=== PATIENT | female | born 1945 | race Caucasian/White ===

== ENCOUNTER 2016-06-18 04:30 | Emergency (ER) | payer MEDICARE, OTHER ==
[2016-06-18] MEDS ORDERED: SODIUM CHLORIDE 0.9% (FLUSH) 10 ML SYG IV PRN (05:10)
--- NOTE | 2016-06-18 05:36 | ED.PDOC ---
History of Present Illness - General Chief Complaint: Respiratory Problem Stated Complaint: upper ab pain, rt side chest pain, SOB Time Seen by Provider: 06/18/16 05:08 Source: patient, RN notes reviewed, Vital Signs reviewed Exam Limitations: other - poor historian - History of Present Illness Initial Comments: This 70 y/o female with ESRD on dialysis was awakened by chest pain earlier this AM. She does not know what time or how long ago. The pain is an achey pain in the substernal area. Patient has shortness of breath (she can't tell me whether this is more than usual), and nausea. She has not vomited. She also has right flank pain which is sharp. She is supposed to go to dialysis this morning at 0630. Timing/Duration: unsure Severity: moderate Improving Factors: nothing Worsening Factors: nothing Associated Symptoms: chest pain, nausea/vomiting, shortness of breath, weakness Allergies/Adverse Reactions: Allergies Penicillins Allergy (Verified 04/08/16 18:53) Sulfa Antibiotics Allergy (Verified 04/08/16 18:53) Home Medications: Ambulatory Orders Cilostazol 50 mg PO BID 07/23/13 Diphenhydramine HCl [Benadryl] 25 mg PO PRN 07/23/13 Loperamide-Simethicone [Imodium Advanced 2-125 mg] 1 tab PO PRN 07/23/13 Sevelamer Carbonate [Renvela] 2,400 mg PO TID 07/23/13 Metoprolol Tartrate 100 mg PO BID 04/08/16 amLODIPine BESYLATE [Norvasc] 10 mg PO DAILY 04/08/16 Review of Systems - Review of Systems Constitutional: States: malaise, weakness EENTM: States: nose congestion Respiratory: States: short of breath Cardiology: States: chest pain Gastrointestinal/Abdominal: States: nausea Genitourinary: States: other - hesitancy Musculoskeletal: States: no symptoms reported Skin: States: no symptoms reported Neurological: States: numbness, paresthesia, pre-existing deficit Endocrine: States: intolerance to cold Hematologic/Lymphatic: States: no symptoms reported All other Systems: Reviewed and Negative Past Medical History (General) - Patient Medical History Hx Stroke: Yes - TIA's Hx Cardiac Disorders: Yes Hx Congestive Heart Failure: Yes Hx Hypertension: Yes Hx Diabetes: Yes Hx Gastroesophageal Reflux: Yes Hx Renal Disease: Yes - CRF; dialysis Hx MRSA: No Surgical History: appendectomy, cholecystectomy, tonsillectomy - Vaccination History Hx Tetanus, Diphtheria Vaccination: Yes Hx Influenza Vaccination: Yes Hx Pneumococcal Vaccination: Yes - Social History Hx Tobacco Use: No Hx Alcohol Use: No Hx Substance Use: No Hx Substance Use Treatment: No Hx Depression: No - Female History Patient : No Family Medical History - Family History Father Living Status: Hx Cardiac Disease: Yes Hx Family Diabetes: Yes Physical Exam - Physical Exam General Appearance: Alert, Comfortable Eye Exam: bilateral normal Ears, Nose, Throat: hearing grossly normal, normal ENT inspection Respiratory: lungs clear, normal breath sounds, no respiratory distress, no accessory muscle use Cardiovascular/Chest: regular rate, rhythm, no edema, no gallop, systolic murmur - III/ Gastrointestinal/Abdominal: normal bowel sounds, soft, no organomegaly, no pulsatile mass, tenderness - generalized abdominal tenderness Extremity: non-tender, normal inspection, no pedal edema, no calf tenderness Neurologic: alert, normal mood/affect, oriented x 3 Skin Exam: normal color, warm/dry Progress - Results/Orders Results/Orders: 06/18/16 06/18/16 06/18/16 04:49 05:17 05:30 Temperature 98.5 F Pulse Rate [ 81 70 73 Apical] Respiratory 18 20 18 Rate Blood Pressure 156/74 149/70 164/65 [Right Arm] O2 Sat by Pulse 93 L 94 L 94 L Oximetry 06/18/16 05:05 HEPATIC FUNCTION PANEL Stat 06/18/16 05:10 IV Care:Saline Lock per Protoc QSHIFT Telemetry .ONCE Sodium Chloride 0.9% (Flush) [Saline Flush Syringe] 10 ml IV PRN PRN EKG Stat Pulse Ox Stat 06/18/16 05:11 Pulse Oximetry Assessment DAILY Laboratory Results WBC 11.1 K/mm3 (4.8-10.8) H 06/18/16 05:05 RBC 3.46 M/mm3 (4.20-5.40) L 06/18/16 05:05 Hgb 10.6 gm/dL (12.0-16.0) L 06/18/16 05:05 Hct 32.4 % (36.0-47.0) L 06/18/16 05:05 MCV 93.6 fl (81.0-99.0) 06/18/16 05:05 MCH 30.6 pg (27.0-31.0) 06/18/16 05:05 MCHC 32.6 g/dL (33.0-37.0) L 06/18/16 05:05 RDW 18.4 % (11.5-14.5) H 06/18/16 05:05 Plt Count 97 K/mm3 (130-400) L 06/18/16 05:05 MPV 10.8 fl (7.40-10.4) H 06/18/16 05:05 Absolute Neuts (auto) 9.80 K/uL (1.8-6.8) H 06/18/16 05:05 Absolute Lymphs (auto) 0.50 K/uL (1.0-3.4) L 06/18/16 05:05 Absolute Monos (auto) 0.70 K/uL (0.2-0.8) 06/18/16 05:05 Absolute Eos (auto) 0.10 K/uL (0.0-0.4) 06/18/16 05:05 Absolute Basos (auto) 0.10 K/uL (0.0-0.1) 06/18/16 05:05 Neutrophils % 87.8 % (42.0-78.0) H 06/18/16 05:05 Lymphocytes % 4.8 % (20.0-50.0) L 06/18/16 05:05 Monocytes % 6.2 % (2.0-9.0) 06/18/16 05:05 Eosinophils % 0.5 % (1.0-5.0) L 06/18/16 05:05 Basophils % 0.7 % (0.0-2.0) 06/18/16 05:05 PT 12.4 SECONDS (9.4-12.5) 06/18/16 05:05 INR 1.100 06/18/16 05:05 PTT (SP) 29.6 SECONDS (25.1-36.5) 06/18/16 05:05 D-Dimer, Quantitative 231 ng/mL (0-230) H 06/18/16 05:05 Sodium 136 mmol/L (135-145) 06/18/16 05:05 Potassium 3.7 mmol/L (3.6-5.0) 06/18/16 05:05 Chloride 90 mmol/L (101-111) L 06/18/16 05:05 Carbon Dioxide 30 mmol/L (21-31) 06/18/16 05:05 Anion Gap 19.7 (12-18) H 06/18/16 05:05 BUN 57 mg/dL (7-18) H 06/18/16 05:05 Creatinine 9.01 mg/dL (0.6-1.3) H* 06/18/16 05:05 BUN/Creatinine Ratio 6.3 (10-20) L 06/18/16 05:05 Random Glucose 198 mg/dL (70-105) H 06/18/16 05:05 Serum Osmolality 293.3 mOsm/L (275-295) 06/18/16 05:05 Calcium 9.1 mg/dL (8.4-10.2) 06/18/16 05:05 Magnesium 1.9 mg/dL (1.8-2.5) 06/18/16 05:05 Creatine Kinase 34 IU/L (26-140) 06/18/16 05:05 CK-MB (CK-2) 1.2 ng/mL (0.0-4.4) 06/18/16 05:05 CK-MB (CK-2) % Not Reportable 06/18/16 05:05 Troponin I 0.04 ng/mL (0.01-0.05) 06/18/16 05:05 B-Natriuretic Peptide 3660.0 pg/ml (0-100) H* 06/18/16 05:05 - EKG/XRAY/CT EKG: Sinus - 75 bpm, no ST T wave changes, Abnormal Q waves - III, aVF, Changed from - EKG of 04/08/2016. Now has Q waves and 1st degree A/V block Comments: NML axis, 1st deg. A/V block, Abn. EKG XRAY: chest - Moderate cardiomegaly with moderate pulmonary edema. Bilateral pleural effusions Departure - Departure Clinical Impression: ESRD (end stage renal disease), First degree AV block Chest pain Qualifiers: Chest pain type: unspecified Qualifier Code: (R07.9) Chest pain, unspecified Congestive heart failure Qualifiers: Congestive heart failure type: unspecified congestive heart failure type Congestive heart failure chronicity: acute on chronic Qualifier Code: (I50.9) Heart failure, unspecified Time of Disposition: 05:54 Disposition: Transfer to Hospital Condition: Poor Home Medications: Ambulatory Orders Cilostazol 50 mg PO BID 07/23/13 Diphenhydramine HCl [Benadryl] 25 mg PO PRN 07/23/13 Loperamide-Simethicone [Imodium Advanced 2-125 mg] 1 tab PO PRN 07/23/13 Sevelamer Carbonate [Renvela] 2,400 mg PO TID 07/23/13 Metoprolol Tartrate 100 mg PO BID 04/08/16 amLODIPine BESYLATE [Norvasc] 10 mg PO DAILY 04/08/16 Transfer to Outside Facility - Transfer Information Accepting Provider:: Dr. Ivan Accepting Facility: [facility] Reason for Transfer: specialized care not available - Patient requires dialysis in addition to hospitalization.
--- NOTE | 2016-06-18 05:39 | RAD ---
Clinical History : chest pain/sob , MAIN Exam : Portable AP view of the chest 06/18/2016 5:10 AM [employer] Comparisons : Portable AP view of the chest April 08, 2016 Findings : There is mild peribronchial thickening throughout the lungs bilaterally. There is bilateral lower lobe airspace disease with small bilateral pleural effusions. The heart is stable in size. The mediastinal contours are normal in appearance. There are vascular calcifications along the aortic arch. The thoracic spine is age appropriate. The shoulders are unremarkable. Limited evaluation of the upper abdomen demonstrates no gross abnormalities. Impression: 1. Cardiomegaly with moderate pulmonary edema. 2. Bilateral pleural effusions with bilateral lower lobe airspace disease. Electronically signed by: Sedrick Khalil MD 06/18/2016 5:38 AM [employer]
[2016-06-18] MEDS ORDERED: ASPIRIN (CHEWABLE) 81 MG TAB PO ONE (05:47)
[2016-06-18] MEDS ORDERED: NITROGLYCERIN 0.4 MG 25 EA TAB SL ONE (05:47)
[2016-06-18 06:28] VITALS: BP 133/52; O2SAT 92
[2016-06-18 06:44] VITALS: TEMP 97.9
== END 2016-06-18 06:35 | disposition short-term general hospital (02) ==
LOC: ER 04:30
DX: I13.2 Hypertensive heart and chronic kidney disease with heart failure and with stage 5 chronic kidney disease, or end stage renal disease (principal); I50.9 Heart failure, unspecified; N18.6 End stage renal disease; E11.9 Type 2 diabetes mellitus without complications; K21.9 Gastro-esophageal reflux disease without esophagitis; Z99.2 Dependence on renal dialysis; Z86.73 Personal history of transient ischemic attack (TIA), and cerebral infarction without residual deficits; Z88.0 Allergy status to penicillin; Z88.2 Allergy status to sulfonamides; Z79.899 Other long term (current) drug therapy

== ENCOUNTER 2016-07-16 02:07 | Emergency (ER) | payer MEDICARE, OTHER ==
[2016-07-16 02:36] VITALS: TEMP 97.2
--- NOTE | 2016-07-16 03:12 | RAD ---
Clinical History : shortness of breath , MAIN Exam : Portable AP view of the chest 07/16/2016 2:46 AM CDT Comparisons : Portable AP view of the chest June 18, 2016 Findings : There is moderate diffuse peribronchial thickening throughout the lungs bilaterally. There is confluent bilateral lower lobe airspace disease. The heart is stable in size with dense mitral annular calcifications. The mediastinal contours are normal in appearance. The thoracic spine is age appropriate. The shoulders are unremarkable. Limited evaluation of the upper abdomen demonstrates no gross abnormalities. Impression: 1. Cardiomegaly with moderate pulmonary edema. 2. Bilateral lower lobe airspace disease. Electronically signed by: Sedrick Khalil MD 07/16/2016 3:11 AM CDT
--- NOTE | 2016-07-16 03:44 | ED.PDOC ---
History of Present Illness - General Chief Complaint: General Stated Complaint: nausea, just feels bad, thinks has pneumonia Time Seen by Provider: 07/16/16 02:46 Source: patient, RN notes reviewed, Vital Signs reviewed Exam Limitations: no limitations - History of Present Illness Initial Comments: Patient is a 71 y/o female who is brought in by her son. She is a dialysis patient -- M/W/F. She has not felt good for the past 2 days. She has become increasingly short of breath and weak. She denies cough. She has been nauseous. No vomiting. Timing/Duration: getting worse, other - 2 days Severity: moderate Improving Factors: nothing Worsening Factors: movement Associated Symptoms: malaise, nausea/vomiting, shortness of breath, weakness Allergies/Adverse Reactions: Allergies Penicillins Allergy (Verified 04/08/16 18:53) Sulfa Antibiotics Allergy (Verified 04/08/16 18:53) Home Medications: Ambulatory Orders Cilostazol 50 mg PO BID 07/23/13 Diphenhydramine HCl [Benadryl] 25 mg PO PRN 07/23/13 Loperamide-Simethicone [Imodium Advanced 2-125 mg] 1 tab PO PRN 07/23/13 Sevelamer Carbonate [Renvela] 2,400 mg PO TID 07/23/13 Metoprolol Tartrate 100 mg PO BID 04/08/16 amLODIPine BESYLATE [Norvasc] 10 mg PO DAILY 04/08/16 Review of Systems - Review of Systems Constitutional: States: no symptoms reported. Denies: chills, fever EENTM: States: no symptoms reported Respiratory: States: short of breath Cardiology: States: no symptoms reported Gastrointestinal/Abdominal: States: nausea. Denies: abdominal pain, diarrhea, vomiting Genitourinary: States: no symptoms reported Musculoskeletal: States: muscle pain Skin: States: no symptoms reported Neurological: States: no symptoms reported Endocrine: States: no symptoms reported Hematologic/Lymphatic: States: no symptoms reported All other Systems: Reviewed and Negative Past Medical History (General) - Patient Medical History Hx Stroke: Yes - TIA's Hx Cardiac Disorders: Yes Hx Congestive Heart Failure: Yes Hx Hypertension: Yes Hx Diabetes: Yes Hx Gastroesophageal Reflux: Yes Hx Renal Disease: Yes - CRF; dialysis Hx MRSA: No - Vaccination History Hx Tetanus, Diphtheria Vaccination: Yes Hx Influenza Vaccination: Yes Hx Pneumococcal Vaccination: Yes - Social History Hx Tobacco Use: No Hx Alcohol Use: No Hx Substance Use: No Hx Substance Use Treatment: No Hx Depression: No - Female History Patient is a Female of Child Bearing Age (10 -59 yrs old): No Patient : No - Triage Comment ED Triage Comment: "Just feel bad", pt has dialysis at 0600 this am. Thinks she could have pneumonia Family Medical History - Family History Father Living Status: Hx Cardiac Disease: Yes Hx Family Diabetes: Yes Physical Exam - Physical Exam General Appearance: Alert, No apparent distress Ears, Nose, Throat: hearing grossly normal, normal ENT inspection Respiratory: no respiratory distress, no accessory muscle use, rales, wheezing Cardiovascular/Chest: regular rate, rhythm, systolic murmur - III/ Gastrointestinal/Abdominal: normal bowel sounds, soft, tenderness - Generalized Neurologic: alert, oriented x 3 Skin Exam: normal color, warm/dry Progress - Progress Progress: 07/16/16 05:[address] Feliz, Patient's electron tube assembler, and he asked me to give Patient 45 g kayexalate for her hyperkalemia. He indicated that her potassium and pulmonary edema will be corrected at dialysis this morning and to assure that she goes to dialysis. - Results/Orders Results/Orders: 07/16/16 02:32 Temperature 97.2 F L Pulse Rate [ 72 Left] Respiratory 18 Rate Blood Pressure 186/76 [Right Arm] O2 Sat by Pulse 93 L Oximetry 07/16/16 02:46 URINALYSIS Stat 07/16/16 03:00 EKG .ONCE Laboratory Results WBC 11.4 K/mm3 (4.8-10.8) H 07/16/16 02:54 RBC 3.53 M/mm3 (4.20-5.40) L 07/16/16 02:54 Hgb 11.2 gm/dL (12.0-16.0) L 07/16/16 02:54 Hct 34.6 % (36.0-47.0) L 07/16/16 02:54 MCV 97.9 fl (81.0-99.0) 07/16/16 02:54 MCH 31.7 pg (27.0-31.0) H 07/16/16 02:54 MCHC 32.3 g/dL (33.0-37.0) L 07/16/16 02:54 RDW 19.0 % (11.5-14.5) H 07/16/16 02:54 Plt Count 109 K/mm3 (130-400) L 07/16/16 02:54 MPV 10.1 fl (7.40-10.4) 07/16/16 02:54 Absolute Neuts (auto) 9.90 K/uL (1.8-6.8) H 07/16/16 02:54 Absolute Lymphs (auto) 0.50 K/uL (1.0-3.4) L 07/16/16 02:54 Absolute Monos (auto) 0.70 K/uL (0.2-0.8) 07/16/16 02:54 Absolute Eos (auto) 0.20 K/uL (0.0-0.4) 07/16/16 02:54 Absolute Basos (auto) 0.10 K/uL (0.0-0.1) 07/16/16 02:54 Neutrophils % 87.3 % (42.0-78.0) H 07/16/16 02:54 Lymphocytes % 4.1 % (20.0-50.0) L 07/16/16 02:54 Monocytes % 6.1 % (2.0-9.0) 07/16/16 02:54 Eosinophils % 1.9 % (1.0-5.0) 07/16/16 02:54 Basophils % 0.6 % (0.0-2.0) 07/16/16 02:54 PT 11.2 SECONDS (9.4-12.5) 07/16/16 02:54 INR 0.990 07/16/16 02:54 PTT (SP) 29.0 SECONDS (25.1-36.5) 07/16/16 02:54 D-Dimer, Quantitative 252 ng/mL (0-230) H* 07/16/16 02:54 Sodium 139 mmol/L (135-145) 07/16/16 02:54 Potassium 6.2 mmol/L (3.6-5.0) H 07/16/16 02:54 Chloride 94 mmol/L (101-111) L 07/16/16 02:54 Carbon Dioxide 28 mmol/L (21-31) 07/16/16 02:54 Anion Gap 23.2 (12-18) H 07/16/16 02:54 BUN 69 mg/dL (7-18) H 07/16/16 02:54 Creatinine 8.53 mg/dL (0.6-1.3) H* 07/16/16 02:54 BUN/Creatinine Ratio 8.1 (10-20) L 07/16/16 02:54 Random Glucose 221 mg/dL (70-105) H 07/16/16 02:54 Serum Osmolality 304.5 mOsm/L (275-295) H 07/16/16 02:54 Calcium 10.0 mg/dL (8.4-10.2) 07/16/16 02:54 Magnesium 2.2 mg/dL (1.8-2.5) 07/16/16 02:54 Total Bilirubin Cancelled 07/16/16 02:54 AST Cancelled 07/16/16 02:54 ALT Cancelled 07/16/16 02:54 Alkaline Phosphatase Cancelled 07/16/16 02:54 Creatine Kinase 30 IU/L (26-140) 07/16/16 02:54 CK-MB (CK-2) 1.5 ng/mL (0.0-4.4) 07/16/16 02:54 CK-MB (CK-2) % Not Reportable 07/16/16 02:54 Troponin I 0.03 ng/mL (0.01-0.05) 07/16/16 02:54 B-Natriuretic Peptide 2720.0 pg/ml (0-100) H* 07/16/16 02:54 Serum Total Protein Cancelled 07/16/16 02:54 Albumin Cancelled 07/16/16 02:54 Globulin Cancelled 07/16/16 02:54 Albumin/Globulin Ratio Cancelled 07/16/16 02:54 - EKG/XRAY/CT EKG: Sinus - 70 bpm, no ST T wave changes, Unchanged from - 06/18/2016 Comments: LAD, 1st deg. AV block, Abnormal EKG XRAY: chest - Moderate pulmonary edema, bilateral lower airspace disease. Departure - Departure Clinical Impression: ESRD (end stage renal disease), First degree AV block, Hypoxemia, Hyperkalemia , diminished renal excretion, Pulmonary edema with congestive heart failure Time of Disposition: 05:23 Disposition: Discharge to Home or Self Care Condition: Poor Departure Forms: ED Discharge - Pt. Copy, Patient Portal Self Enrollment Home Medications: Ambulatory Orders Cilostazol 50 mg PO BID 07/23/13 Diphenhydramine HCl [Benadryl] 25 mg PO PRN 07/23/13 Loperamide-Simethicone [Imodium Advanced 2-125 mg] 1 tab PO PRN 07/23/13 Sevelamer Carbonate [Renvela] 2,400 mg PO TID 07/23/13 Metoprolol Tartrate 100 mg PO BID 04/08/16 amLODIPine BESYLATE [Norvasc] 10 mg PO DAILY 04/08/16 Additional Instructions: Go to dialysis this morning. If symptoms persist after dialysis, follow up in the ED.
[2016-07-16] MEDS ORDERED: SOD POLYSTYRENE SULFONATE 15 GM/60 ML BTTL ONE (04:16)
[2016-07-16] MEDS ORDERED: SOD POLYSTYRENE SULFONATE 15 GM/60 ML BTTL PO ONE (04:16)
[2016-07-16 05:19] VITALS: O2SAT 89
[2016-07-16 06:28] VITALS: BP 179/84
== END 2016-07-16 06:28 | disposition home or self-care (01) ==
LOC: ER 02:07
DX: I13.2 Hypertensive heart and chronic kidney disease with heart failure and with stage 5 chronic kidney disease, or end stage renal disease (principal); N18.6 End stage renal disease; I50.9 Heart failure, unspecified; Z99.2 Dependence on renal dialysis; I44.0 Atrioventricular block, first degree; E87.5 Hyperkalemia; R09.02 Hypoxemia; E11.9 Type 2 diabetes mellitus without complications; K21.9 Gastro-esophageal reflux disease without esophagitis; Z86.73 Personal history of transient ischemic attack (TIA), and cerebral infarction without residual deficits; Z88.0 Allergy status to penicillin; Z88.2 Allergy status to sulfonamides; Z79.899 Other long term (current) drug therapy

== ENCOUNTER 2016-10-19 20:04 | Emergency (ER) | payer MEDICARE, OTHER ==
--- NOTE | 2016-10-19 20:41 | RAD ---
EXAM DESCRIPTION: Chest,1 View CLINICAL HISTORY: sob, weakness skipped dialysis COMPARISON: July 16, 2016 FINDINGS: Cardiac silhouette is enlarged unchanged compared with the prior exam. EKG leads project over the chest. Blunted costophrenic angles and increased opacity at the lower lungs compatible with a combination of pleural fluid and atelectasis. Indistinctness of the pulmonary vessels compatible pulmonary edema. There is no pneumothorax. IMPRESSION: Blunted costophrenic angles and increased opacity at the lower lungs compatible with a combination of pleural fluid and atelectasis. Indistinctness of the pulmonary vessels compatible pulmonary edema. Electronically signed by: Costa Vargas MD 10/19/2016 8:40 PM CDT
[2016-10-19] MEDS ORDERED: cefTRIAXone SODIUM 1 GM VIAL ONE (21:13)
[2016-10-19] MEDS ORDERED: SODIUM CHL 0.9% 50ML MIN-BAG+ 50 ML IVPB ONE (21:13)
[2016-10-19] MEDS: cefTRIAXone SODIUM 1 GM in SODIUM CHL 0.9% 50ML MIN-BAG+ 50 ML IVPB ONE (21:15)
[2016-10-19] MEDS: HEPARIN SODIUM (PORCINE) 5,000 U/ML VIAL IV ONE (21:16)
[2016-10-19] MEDS: FUROSEMIDE INJ 100 MG/10 ML VIAL IV ONE (21:25)
--- NOTE | 2016-10-19 21:47 | ED.PDOC ---
History of Present Illness - General Chief Complaint: Chest Pain/CO Time Seen by Provider: 10/19/16 20:16 Source: patient, family Exam Limitations: no limitations, clinical condition - History of Present Illness Initial Comments: the patient is a 71-year-old female presenting to the emergency room by EMS upon instruction of her son. Her son is a uniform patrol police officer here and does give some of her past medical history. 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 The patient is apparently on home O2 at approximately 3 L/m normally and has oxygen saturations of 85-88% normally at home according to the son. I have been unable to determine specifically what is the source of her chronic lung disease. The patient also has a history of congestive heart failure, end-stage renal disease for which she receives dialysis Wednesdays and Fridays. She did not go to dialysis today due to feeling poorly. She has anemia of chronic disease. She has hypertension. She has chronic hearing loss. She is an insulin-dependent diabetic. She has gastroesophageal reflux disease and constipation issues as well as hypercholesterolemia. The patient is presenting primarily simply to not feeling good. She has apparently had 2 days of intermittent nausea vomiting and diarrhea. Her son tells me that multiple family members have had similar symptoms. No palpitations. No chest pain. No new shortness of breath. No new altered mental status. Upon arrival here the patient looks old and frail. She is able to answer her routine simple questions without any difficulty. She does not appear to be in any respiratory distress. There is no increased work of breathing. The patient does have bibasilar rales. There are no wheezes. She is not coughing up anything currently. She has not had any fevers. She has not had any productive sputum. She has no history of atrial fibrillation according to her, but is in atrial fibrillation and rate control currently. Her previous EKGs from here at the hospital show that she has been in sinus rhythm as little as 3-4 months ago. The patient has arrived and her pulse oximetry is registering between 65 and 72% on 3 L nasal cannula. She is not cyanotic. She is mildly pale. Again she does not feel short of breath. She is not. She is in no respiratory distress. ABG on 3 L nasal cannula shows a PaO2 of 28. A PaCO2 of 47. Bicarbonate level of 30. And a pH of 7.42. Timing/Duration: unsure Severity: severe Improving Factors: nothing Worsening Factors: nothing Associated Symptoms: loss of appetite, malaise, nausea/vomiting, weakness Allergies/Adverse Reactions: Allergies Penicillins Allergy (Verified 04/08/16 18:53) Sulfa Antibiotics Allergy (Verified 04/08/16 18:53) Home Medications: Ambulatory Orders Cilostazol 50 mg PO BID 07/23/13 Diphenhydramine HCl [Benadryl] 25 mg PO PRN 07/23/13 Loperamide-Simethicone [Imodium Advanced 2-125 mg] 1 tab PO PRN 07/23/13 Sevelamer Carbonate [Renvela] 2,400 mg PO TID 07/23/13 Metoprolol Tartrate 100 mg PO BID 04/08/16 amLODIPine BESYLATE [Norvasc] 10 mg PO DAILY 04/08/16 Review of Systems - Review of Systems Constitutional: States: malaise, weakness EENTM: States: no symptoms reported Respiratory: States: cough - mild, short of breath - chronic and not significantly worsened from her baseline Cardiology: States: see HPI Gastrointestinal/Abdominal: States: nausea, vomiting - no significant abdominal pain. Just intermittent abdominal cramping. Genitourinary: States: no symptoms reported Musculoskeletal: States: other - mild body aches Skin: States: no symptoms reported Neurological: States: weakness - generalized Endocrine: States: no symptoms reported All other Systems: No Change from Baseline Past Medical History (General) - Patient Medical History Hx Stroke: No Hx Cardiac Disorders: Yes Hx Congestive Heart Failure: Yes Hx Hypertension: Yes Hx Diabetes: Yes Hx Gastroesophageal Reflux: Yes Hx Renal Disease: Yes Hx Cancer: No Hx Hepatitis C: No Hx MRSA: No - Vaccination History Hx Tetanus, Diphtheria Vaccination: No Hx Influenza Vaccination: Yes Hx Pneumococcal Vaccination: Yes - Social History Hx Tobacco Use: No Hx Chewing Tobacco Use: No Hx Alcohol Use: No Hx Substance Use: No Hx Substance Use Treatment: No Hx Depression: No Feels Threatened In Home Enviroment: No Feels Threatened In a Relationship: No Hx Physical Abuse: No Hx Emotional Abuse: No Hx Suspected Abuse: No - Female History Patient is a Female of Child Bearing Age (10 -59 yrs old): No Patient : No Family Medical History - Family History Father Living Status: Hx Cardiac Disease: Yes Hx Family Diabetes: Yes Physical Exam - Physical Exam General Appearance: Alert, Comfortable, No apparent distress Eye Exam: bilateral normal Ears, Nose, Throat: hearing grossly normal, normal ENT inspection, normal pharynx Neck: non-tender, full range of motion, supple, normal inspection Respiratory: chest non-tender, no respiratory distress, no accessory muscle use , decreased breath sounds - towards the bases, crackles Cardiovascular/Chest: normal peripheral pulses, no edema, other - regular rate and irregular rhythm Peripheral Pulses: radial,right: 2+, radial,left: 2+ - fistula is in the left upper extremity Gastrointestinal/Abdominal: soft, other - mild epigastric discomfort palpation. No definite rebound or peritoneal signs. Rectal Exam: deferred Back Exam: normal inspection, no CVA tenderness, no vertebral tenderness Extremity: normal range of motion, non-tender, normal inspection, no pedal edema Neurologic: undercollar baster II-XII nml as tested, alert, normal mood/affect - ildly flat affect, oriented x 3 Skin Exam: pallor Comments: Vital Signs - 24 hr 10/19/16 10/19/16 20:10 21:19 Temperature 98.7 F Pulse Rate [R 97 H Arm] Respiratory 22 Rate Blood Pressure 140/65 [R Arm] O2 Sat by Pulse 69 L 88 L Oximetry Progress - Progress Progress: 10/19/16 21:53 the patient is a 71-year-old female with a bizarre presentation who showed up primarily due to GI symptoms that she has shared with her family for the last couple of days. The patient was found to be markedly hypoxic and in new atrial fibrillation at least as far as family and I know. The patient is tolerating the severe hypoxia extremely well clinically. She is in no respiratory distress. ABG confirms the hypoxia and also hints towards this likely being a longer standing problem. The patient corrected to 84% with a nonrebreather. She was changed over to BiPAP and she has actually shown better correction with the BiPAP. We are currently targeting her oxygen saturations at 88-90% given her long-standing history of hypoxia. The patient obviously needs dialysis. A CT angiogram for evaluation of possible pulmonary embolus may be in order prior to the dialysis. She did receive 1 dose of heparin here. She also did receive 1 g of IV Rocephin in case there is pneumonia in the background. duration of the atrial fibrillation is unknown to me and the family. She has an EKG from approximately 4 months ago that showed normal sinus rhythm. he has not vomited or had any diarrhea since her arrival. Blood pressures have been within tolerable parameters. Transferring for dialysis and higher level of care. - Results/Orders Results/Orders: Laboratory Tests 10/19/16 10/19/16 10/19/16 20:18 20:18 20:18 WBC 11.2 H RBC 3.41 L Hgb 10.5 L Hct 32.3 L MCV 94.6 MCH 30.7 MCHC 32.4 L RDW 17.8 H Plt Count 128 L MPV 11.5 H Absolute Neuts (auto) 10.10 H Absolute Lymphs (auto) 0.30 L Absolute Monos (auto) 0.70 Absolute Eos (auto) 0.00 Absolute Basos (auto) 0.00 Neutrophils % 90.1 H Lymphocytes % 3.0 L Monocytes % 6.6 Eosinophils % 0.0 L Basophils % 0.3 PT 14.9 H INR 1.320 PTT (SP) 29.5 Sodium 135 Potassium 5.1 H Chloride 90 L Carbon Dioxide 27 Anion Gap 23.1 H BUN 69 H Creatinine 8.08 H* BUN/Creatinine Ratio 8.5 L Random Glucose 290 H Serum Osmolality 300.9 H Calcium 9.6 Magnesium 2.0 Total Bilirubin 1.1 H AST 24 ALT 20 Alkaline Phosphatase 97 Creatine Kinase 29 CK-MB (CK-2) 0.7 CK-MB (CK-2) % Not Reportable Troponin I 0.04 B-Natriuretic Peptide > 5000.0 H* Serum Total Protein 8.0 Albumin 3.5 Globulin 4.5 H Albumin/Globulin Ratio 0.8 L Amylase 38 Lipase 23 TSH 3.49 Urine Color Urine Appearance Urine pH Ur Specific [place] Urine Protein Urine Glucose (UA) Urine Ketones Urine Blood Urine Nitrite Urine Bilirubin Urine Urobilinogen Ur Leukocyte Esterase Urine RBC Urine WBC Ur Epithelial Cells Amorphous Sediment Urine Bacteria Urine Mucus 10/19/16 21:37 WBC RBC Hgb Hct MCV MCH MCHC RDW Plt Count MPV Absolute Neuts (auto) Absolute Lymphs (auto) Absolute Monos (auto) Absolute Eos (auto) Absolute Basos (auto) Neutrophils % Lymphocytes % Monocytes % Eosinophils % Basophils % PT INR PTT (SP) Sodium Potassium Chloride Carbon Dioxide Anion Gap BUN Creatinine BUN/Creatinine Ratio Random Glucose Serum Osmolality Calcium Magnesium Total Bilirubin AST ALT Alkaline Phosphatase Creatine Kinase CK-MB (CK-2) CK-MB (CK-2) % Troponin I B-Natriuretic Peptide Serum Total Protein Albumin Globulin Albumin/Globulin Ratio Amylase Lipase TSH Urine Color Yellow Urine Appearance Sl cloudy Urine pH 7.5 Ur Specific [place] 1.020 Urine Protein >=300 H Urine Glucose (UA) 500 H Urine Ketones Negative Urine Blood Small H Urine Nitrite Negative Urine Bilirubin Negative Urine Urobilinogen 0.2 Ur Leukocyte Esterase Small H Urine RBC 3-5 H Urine WBC 10-20 H Ur Epithelial Cells Tntc Amorphous Sediment 2+ Urine Bacteria 2+ H Urine Mucus Small chest x-ray is consistent with CHF exacerbation and atelectasis EKG shows atrial fibrillation that is rate controlled. In comparison to previous EKGs there is possibly [address] segment depression in V6 and aVL. There is chronic poor R-wave progression in anterior leads. Mild right axis. Normal QTc interval. ABG as per the history of present illness Departure - Departure Clinical Impression: CHF exacerbation, New onset atrial fibrillation, Hypoxia, End stage renal disease Disposition: Transfer to Hospital Home Medications: Ambulatory Orders Cilostazol 50 mg PO BID 07/23/13 Diphenhydramine HCl [Benadryl] 25 mg PO PRN 07/23/13 Loperamide-Simethicone [Imodium Advanced 2-125 mg] 1 tab PO PRN 07/23/13 Sevelamer Carbonate [Renvela] 2,400 mg PO TID 07/23/13 Metoprolol Tartrate 100 mg PO BID 04/08/16 amLODIPine BESYLATE [Norvasc] 10 mg PO DAILY 04/08/16 Transfer to Outside Facility - Transfer Information Accepting Provider:: dr lyndsay alexander Accepting Facility: [facility] Reason for Transfer: specialized care not available
[2016-10-19 22:09] VITALS: BP 168/87; TEMP 97.8; O2SAT 90
== END 2016-10-19 22:45 | disposition short-term general hospital (02) ==
LOC: ER 20:04
DX: I48.91 Unspecified atrial fibrillation (principal); I13.2 Hypertensive heart and chronic kidney disease with heart failure and with stage 5 chronic kidney disease, or end stage renal disease; N18.6 End stage renal disease; I50.9 Heart failure, unspecified; D63.1 Anemia in chronic kidney disease; Z99.2 Dependence on renal dialysis; E11.9 Type 2 diabetes mellitus without complications; K21.9 Gastro-esophageal reflux disease without esophagitis; E78.00 Pure hypercholesterolemia, unspecified; I69.398 Other sequelae of cerebral infarction; Z99.81 Dependence on supplemental oxygen; Z79.4 Long term (current) use of insulin; Z88.0 Allergy status to penicillin; Z88.2 Allergy status to sulfonamides; Z79.899 Other long term (current) drug therapy

== ENCOUNTER → 2016-11-30 | Outpatient (CLI) | payer MEDICARE, OTHER | END | disposition home or self-care (01) | LOC: LAB.NP 13:43 | PROVIDERS: ATTEND Family Medicine | DX: A04.7 Enterocolitis due to Clostridium difficile (principal) ==

== ENCOUNTER 2016-12-17 10:49 | Emergency (ER) | payer MEDICARE, OTHER ==
--- NOTE | 2016-12-17 11:33 | ED.PDOC ---
History of Present Illness - General Chief Complaint: Chest Pain/NE Stated Complaint: Chest pain Time Seen by Provider: 12/17/16 10:51 Source: patient, RN notes reviewed, Vital Signs reviewed, family - son Exam Limitations: no limitations - History of Present Illness Initial Comments: Patient comes in with c/o chest, arms, shoulders and back pain. Intermittently starting 5 days ago but constant for the past 2 days. + SOB, Nausea and diaphoresis with the pain. Son reports that she seemed fine yesterday, did not c /o chest pain but did tell them it hurt this morning. Denies similar pain in the past. When asked about her prior visit for chest pain she says this time it is different but can't clarify how it is different. Timing/Duration: days - 5, getting worse Severity/Quality: moderate, dull, pressure Location: central, shoulder, back Chest Pain Radiation: arms Activities at Onset: none Prior Chest Pain/Cardiac Workup: other - unclear what workup has been done but did have new onset a fib in October and was transfered to [facility] Improving Factors: nothing Worsening Factors: nothing Nitro Today/Relief: 0.4 mg x 1, provided by ED, mild relief - Pain went from 7/ 10 to 5/10 Aspirin Treatment Today: 81 mg x 4, provided by ED Associated Symptoms: back pain, diaphoresis, nausea/vomiting, shortness of breath Allergies/Adverse Reactions: Allergies Penicillins Allergy (Verified 04/08/16 18:53) Sulfa Antibiotics Allergy (Verified 04/08/16 18:53) Home Medications: Ambulatory Orders Cilostazol 50 mg PO BID 07/23/13 Diphenhydramine HCl [Benadryl] 25 mg PO PRN 07/23/13 Loperamide-Simethicone [Imodium Advanced 2-125 mg] 1 tab PO PRN 07/23/13 Sevelamer Carbonate [Renvela] 2,400 mg PO TID 07/23/13 Metoprolol Tartrate 100 mg PO BID 04/08/16 amLODIPine BESYLATE [Norvasc] 10 mg PO DAILY 04/08/16 Review of Systems - Review of Systems Constitutional: States: no symptoms reported EENTM: States: no symptoms reported Respiratory: States: see HPI, short of breath Cardiology: States: see HPI, chest pain. Denies: edema, palpitations, syncope Gastrointestinal/Abdominal: States: see HPI, nausea. Denies: abdominal pain, diarrhea, vomiting Musculoskeletal: States: see HPI, back pain Skin: States: no symptoms reported Neurological: States: no symptoms reported All other Systems: No Change from Baseline Past Medical History (General) - Patient Medical History Hx Stroke: No Hx Cardiac Disorders: Yes Hx Congestive Heart Failure: Yes Hx Hypertension: Yes Hx Diabetes: Yes Hx Gastroesophageal Reflux: Yes Hx Renal Disease: Yes Hx Cancer: No Hx Hepatitis C: No Hx MRSA: No - Vaccination History Hx Tetanus, Diphtheria Vaccination: No Hx Influenza Vaccination: Yes Hx Pneumococcal Vaccination: Yes - Social History Hx Tobacco Use: No Hx Chewing Tobacco Use: No Hx Alcohol Use: No Hx Substance Use: No Hx Substance Use Treatment: No Hx Depression: No Hx Physical Abuse: No Hx Emotional Abuse: No Hx Suspected Abuse: No - Female History Patient : No Family Medical History - Family History Father Living Status: Hx Cardiac Disease: Yes Hx Family Diabetes: Yes Physical Exam - Physical Exam General Appearance: Alert, Comfortable, Frail, No apparent distress, Well Developed, Well Groomed, Well Hydrated, Well Nourished Neck: supple, normal inspection Respiratory: lungs clear, normal breath sounds, no respiratory distress, no accessory muscle use Cardiovascular/Chest: regular rate, rhythm, no edema, no gallop, no JVD, systolic murmur Peripheral Pulses: dorsalis pedis,right: 1+, dorsalis pedis,left: 1+ Gastrointestinal/Abdominal: normal bowel sounds, soft, no organomegaly, no pulsatile mass, tenderness - Mild RUQ tenderness Extremity: non-tender, normal inspection, no pedal edema Neurologic: alert, normal mood/affect, oriented x 3 Skin Exam: normal color, warm/dry Progress - Results/Orders Results/Orders: Laboratory Tests 12/17/16 12/17/16 12/17/16 11:19 11:19 11:19 WBC 7.3 RBC 3.15 L Hgb 9.4 L Hct 29.6 L MCV 93.9 MCH 29.8 MCHC 31.9 L RDW 18.0 H Plt Count 107 L MPV 11.7 H Absolute Neuts (auto) 6.00 Absolute Lymphs (auto) 0.60 L Absolute Monos (auto) 0.60 Absolute Eos (auto) 0.10 Absolute Basos (auto) 0.10 Neutrophils % 81.3 H Lymphocytes % 8.0 L Monocytes % 8.7 Eosinophils % 1.1 Basophils % 0.9 PT INR PTT (SP) D-Dimer, Quantitative 1172 H* Sodium 138 Potassium 5.9 H Chloride 95 L Carbon Dioxide 30 Anion Gap 18.9 H BUN 55 H Creatinine 7.06 H* BUN/Creatinine Ratio 7.8 L Random Glucose 124 H Serum Osmolality 292.2 Calcium 9.1 Magnesium 1.9 Total Bilirubin 1.1 H AST 45 H ALT 51 Alkaline Phosphatase 112 Creatine Kinase 27 CK-MB (CK-2) 1.9 CK-MB (CK-2) % Not Reportable Troponin I 0.54 H* B-Natriuretic Peptide 4270.0 H* Serum Total Protein 6.8 Albumin 3.2 Globulin 3.6 H Albumin/Globulin Ratio 0.9 L 12/17/16 11:20 WBC RBC Hgb Hct MCV MCH MCHC RDW Plt Count MPV Absolute Neuts (auto) Absolute Lymphs (auto) Absolute Monos (auto) Absolute Eos (auto) Absolute Basos (auto) Neutrophils % Lymphocytes % Monocytes % Eosinophils % Basophils % PT 13.7 H INR 1.210 PTT (SP) 26.3 D-Dimer, Quantitative Sodium Potassium Chloride Carbon Dioxide Anion Gap BUN Creatinine BUN/Creatinine Ratio Random Glucose Serum Osmolality Calcium Magnesium Total Bilirubin AST ALT Alkaline Phosphatase Creatine Kinase CK-MB (CK-2) CK-MB (CK-2) % Troponin I B-Natriuretic Peptide Serum Total Protein Albumin Globulin Albumin/Globulin Ratio - EKG/XRAY/CT EKG: Atrial, Fibrillation, nonspecific ST T wave Chg - New inverted T-waves in III, aVF, V3 & V4, Changed from - 10/19/16 XRAY: chest - R basilar infiltrate/atelectasis w/ sm effusion per Radiologist Departure - Departure Clinical Impression: ESRD (end stage renal disease), Hyperkalemia, diminished renal excretion, Elevated troponin, D-dimer, elevated Acute exacerbation of congestive heart failure Qualifiers: Congestive heart failure type: unspecified congestive heart failure type Qualified Code(s): I50.9 - Heart failure, unspecified Chest pain Qualifiers: Chest pain type: chest pain due to myocardial ischemia Ischemic chest pain type : unstable angina pectoris Qualified Code(s): I20.0 - Unstable angina Time of Disposition: 12:27 Disposition: Transfer to Hospital Condition: Poor Departure Forms: ED Discharge - Pt. Copy, Patient Portal Self Enrollment Referrals: SLIM ROCHA [Primary Care Provider] - 1-2 Weeks Home Medications: Ambulatory Orders Cilostazol 50 mg PO BID 07/23/13 Diphenhydramine HCl [Benadryl] 25 mg PO PRN 07/23/13 Loperamide-Simethicone [Imodium Advanced 2-125 mg] 1 tab PO PRN 07/23/13 Sevelamer Carbonate [Renvela] 2,400 mg PO TID 07/23/13 Metoprolol Tartrate 100 mg PO BID 04/08/16 amLODIPine BESYLATE [Norvasc] 10 mg PO DAILY 04/08/16 Critical Care Note - Critical Care Note Total Time (mins): 60 Transfer to Outside Facility - Transfer Information Accepting Provider:: Dr. Godfrey Accepting Facility: [facility] Reason for Transfer: specialized care not available
[2016-12-17] MEDS ORDERED: ASPIRIN TABLET 325 MG TAB ONE (11:36)
[2016-12-17] MEDS ORDERED: ASPIRIN (CHEWABLE) 81 MG TAB PO ONE (11:36)
[2016-12-17] MEDS ORDERED: NITROGLYCERIN 0.4 MG 25 EA TAB SL ONE (11:36)
[2016-12-17] MEDS: NITROGLYCERIN 0.4 MG 25 EA TAB SL ONE ×2 (11:42→11:52)
--- NOTE | 2016-12-17 12:05 | RAD ---
PROCEDURE: XR CHEST 1 VIEW HISTORY: Chest pain COMPARISON: 10/19/2016 TECHNIQUE: Single projection of the chest was done. FINDINGS: There is presence of mild right basilar infiltrate/atelectasis and a tiny right-sided pleural effusion . There are no pneumothoraces The cardiomediastinal silhouette is stable. IMPRESSION: There is presence of mild right basilar infiltrate/atelectasis and a tiny right-sided pleural effusion . Electronically signed by: Richard Rosas MD 12/17/2016 12:03 PM CDT Workstation: [id number]
[2016-12-17 12:52] VITALS: TEMP 97.1
[2016-12-17 12:58] VITALS: BP 139/85; O2SAT 100
== END 2016-12-17 13:09 | disposition short-term general hospital (02) ==
LOC: ER 10:49
DX: I20.0 Unstable angina (principal); I13.2 Hypertensive heart and chronic kidney disease with heart failure and with stage 5 chronic kidney disease, or end stage renal disease; E11.22 Type 2 diabetes mellitus with diabetic chronic kidney disease; N18.6 End stage renal disease; E87.5 Hyperkalemia; I50.9 Heart failure, unspecified; Z79.84 Long term (current) use of oral hypoglycemic drugs; Z79.899 Other long term (current) drug therapy; Z88.0 Allergy status to penicillin; Z88.2 Allergy status to sulfonamides

== ENCOUNTER 2017-01-22 23:01 | Emergency (ER) | payer MEDICARE, OTHER ==
--- NOTE | 2017-01-22 23:13 | ED.PDOC ---
History of Present Illness - General Chief Complaint: General Stated Complaint: nausea/vomiting Time Seen by Provider: 01/22/17 23:09 Source: patient, EMS notes reviewed Exam Limitations: no limitations - History of Present Illness Initial Comments: Penny Zamudio 71 y/o female stated that she had nausea/ vomiting and diarrhea multiple times tonight called up ems and was brought to ER.She has history of ESRD on hemodialysis M/W/F and had to undergo one today since she had fluid overload. Stated tried to eat sandwich and threw it back up. Timing/Duration: 4-6 hours, intermittent Improving Factors: nothing Worsening Factors: eating Associated Symptoms: loss of appetite Allergies/Adverse Reactions: Allergies Penicillins Allergy (Verified 04/08/16 18:53) Sulfa Antibiotics Allergy (Verified 04/08/16 18:53) Home Medications: Ambulatory Orders Cilostazol 50 mg PO BID 07/23/13 Diphenhydramine HCl [Benadryl] 25 mg PO PRN 07/23/13 Loperamide-Simethicone [Imodium Advanced 2-125 mg] 1 tab PO PRN 07/23/13 Sevelamer Carbonate [Renvela] 2,400 mg PO TID 07/23/13 Metoprolol Tartrate 100 mg PO BID 04/08/16 amLODIPine BESYLATE [Norvasc] 10 mg PO DAILY 04/08/16 Review of Systems - Review of Systems Constitutional: States: no symptoms reported EENTM: States: no symptoms reported Respiratory: States: no symptoms reported Cardiology: States: no symptoms reported Gastrointestinal/Abdominal: States: see HPI Genitourinary: States: see HPI Musculoskeletal: States: no symptoms reported Skin: States: no symptoms reported Neurological: States: no symptoms reported Endocrine: States: no symptoms reported Hematologic/Lymphatic: States: no symptoms reported Past Medical History (General) - Patient Medical History Hx Stroke: No Hx Cardiac Disorders: Yes Hx Congestive Heart Failure: Yes Hx Hypertension: Yes Hx Diabetes: Yes Hx Gastroesophageal Reflux: Yes Hx Renal Disease: Yes Hx Cancer: No Hx Hepatitis C: No Hx MRSA: No Surgical History: cholecystectomy, tonsillectomy, other - hysterectomy,a-v fistula for dialysis - Vaccination History Hx Tetanus, Diphtheria Vaccination: No Hx Influenza Vaccination: Yes Hx Pneumococcal Vaccination: Yes - Social History Hx Tobacco Use: No Hx Chewing Tobacco Use: No Hx Alcohol Use: No Hx Substance Use: No Hx Substance Use Treatment: No Hx Depression: No Hx Physical Abuse: No Hx Emotional Abuse: No Hx Suspected Abuse: No - Female History Patient : No Family Medical History - Family History Father Living Status: Hx Cardiac Disease: Yes Hx Family Diabetes: Yes Physical Exam - Physical Exam General Appearance: Alert, Comfortable, No apparent distress Eye Exam: bilateral normal - with glasses Ears, Nose, Throat: hearing grossly normal, normal ENT inspection, normal pharynx Neck: full range of motion, supple, normal inspection Respiratory: chest non-tender, no respiratory distress, decreased breath sounds - bases Cardiovascular/Chest: normal peripheral pulses, no gallop, no JVD, systolic murmur - left 2nd ics, irregularly irregular Peripheral Pulses: radial,left: 2+ - patent a-v fistula Gastrointestinal/Abdominal: non tender, soft, no organomegaly Extremity: non-tender, normal inspection, no pedal edema, no calf tenderness Neurologic: no motor/sensory deficits, alert, normal mood/affect, oriented x 3 Skin Exam: normal color, warm/dry Lymphatic: no adenopathy Progress - Progress Progress: 01/23/17 00:29 Vital Signs - 8 hr 01/22/17 01/22/17 01/22/17 23:15 23:30 23:37 Temperature 94.6 F L Pulse Rate [ 86 78 84 Right] Respiratory 20 20 20 Rate Blood Pressure 151/73 127/70 127/70 [Right Arm] O2 Sat by Pulse 99 100 100 Oximetry 01/23/17 00:02 Temperature Pulse Rate [ 88 Right] Respiratory Rate Blood Pressure 143/63 [Right Arm] O2 Sat by Pulse Oximetry - Results/Orders Results/Orders: Laboratory Tests 01/22/17 01/22/17 01/22/17 23:25 23:25 23:25 WBC 6.3 RBC 3.87 L Hgb 11.7 L Hct 36.1 MCV 93.3 MCH 30.2 MCHC 32.4 L RDW 16.4 H Plt Count 145 MPV 10.3 Absolute Neuts (auto) 5.60 Absolute Lymphs (auto) 0.30 L Absolute Monos (auto) 0.40 Absolute Eos (auto) 0.10 Absolute Basos (auto) 0.00 Neutrophils % 87.6 H Lymphocytes % 4.7 L Monocytes % 6.3 Eosinophils % 0.9 L Basophils % 0.5 Sodium 137 Potassium 5.2 H Chloride 90 L Carbon Dioxide 31 Anion Gap 21.2 H BUN 62 H Creatinine 5.58 H BUN/Creatinine Ratio 11.1 Random Glucose 242 H Serum Osmolality 299.4 H Calcium 10.3 H Phosphorus Magnesium Total Bilirubin 0.8 AST 44 H ALT 39 Alkaline Phosphatase 133 H Troponin I 0.02 Serum Total Protein 9.1 H Albumin 4.2 Globulin 4.9 H Albumin/Globulin Ratio 0.9 L Lipase 32 01/22/17 01/22/17 23:25 23:25 WBC RBC Hgb Hct MCV MCH MCHC RDW Plt Count MPV Absolute Neuts (auto) Absolute Lymphs (auto) Absolute Monos (auto) Absolute Eos (auto) Absolute Basos (auto) Neutrophils % Lymphocytes % Monocytes % Eosinophils % Basophils % Sodium Potassium Chloride Carbon Dioxide Anion Gap BUN Creatinine BUN/Creatinine Ratio Random Glucose Serum Osmolality Calcium Phosphorus 4.3 Magnesium 1.9 Total Bilirubin AST ALT Alkaline Phosphatase Troponin I Serum Total Protein Albumin Globulin Albumin/Globulin Ratio Lipase No nausea/vomiting since she was in ER - EKG/XRAY/CT EKG: Atrial, Fibrillation, nonspecific ST T wave Chg Comments: heart rate-91 XRAY: chest - mild vascular congestion Departure - Departure Clinical Impression: Nausea and vomiting in adult patient, ESRD (end stage renal disease) Diarrhea Qualifiers: Diarrhea type: unspecified type Qualified Code(s): R19.7 - Diarrhea, unspecified Time of Disposition: 00:44 Disposition: Discharge to Home or Self Care Condition: Fair Departure Forms: ED Discharge - Pt. Copy, Patient Portal Self Enrollment Instructions: Diarrhea, Diarrhea (Alternative Therapy), DI for Diarrhea and Traveler's Diarrhea -- Adult, DI for Vomiting -- Adult, Nausea and Vomiting- Adult Referrals: SLIM ROCHA [Primary Care Provider] - 1-2 Weeks Home Medications: Ambulatory Orders Cilostazol 50 mg PO BID 07/23/13 Diphenhydramine HCl [Benadryl] 25 mg PO PRN 07/23/13 Loperamide-Simethicone [Imodium Advanced 2-125 mg] 1 tab PO PRN 07/23/13 Sevelamer Carbonate [Renvela] 2,400 mg PO TID 07/23/13 Metoprolol Tartrate 100 mg PO BID 04/08/16 amLODIPine BESYLATE [Norvasc] 10 mg PO DAILY 04/08/16 Additional Instructions: RETURN TO ER NEEDED
[2017-01-22] MEDS ORDERED: PROMETHAZINE HCL INJ 25 MG/ML VIAL IM ONE (23:28)
--- NOTE | 2017-01-22 23:55 | RAD ---
Examination: XR CHEST 1 VIEW dated 01/22/2017 11:22 PM CDT History: nausea/vomiting Comparison: 12/17/2016 Technique: Frontal view of the chest Findings: Again noted is prominence of the interstitial markings bilaterally. No focal airspace consolidation. No pneumothorax or pleural effusion. Stable enlargement of the cardiac silhouette. Aortic atherosclerosis. Impression: Mild pulmonary vascular congestion. Electronically signed by: Devin Dc MD 01/22/2017 11:54 PM CDT
[2017-01-23 00:35] VITALS: O2SAT 99
[2017-01-23] MEDS ORDERED: PROMETHAZINE TAB (ER DISP) 25 MG TAB PO ONE (00:45)
[2017-01-23 01:11] VITALS: BP 141/62; TEMP 96.3
== END 2017-01-23 01:11 | disposition home or self-care (01) ==
LOC: ER 23:01
DX: R11.2 Nausea with vomiting, unspecified (principal); R19.7 Diarrhea, unspecified; I13.2 Hypertensive heart and chronic kidney disease with heart failure and with stage 5 chronic kidney disease, or end stage renal disease; E11.22 Type 2 diabetes mellitus with diabetic chronic kidney disease; N18.6 End stage renal disease; I50.9 Heart failure, unspecified; Z99.2 Dependence on renal dialysis; I48.91 Unspecified atrial fibrillation; Z88.0 Allergy status to penicillin; Z88.2 Allergy status to sulfonamides; Z79.899 Other long term (current) drug therapy
CPT/HCPCS: 36415; 71010; 80053; 83690; 83735; 84100; 84484; 85025; 93005; J2550; Q0169

== ENCOUNTER 2017-01-29 17:17 | Emergency (ER) | payer MEDICARE, OTHER ==
[2017-01-29 17:31] VITALS: TEMP 97.8
[2017-01-29] MEDS ORDERED: SODIUM CHLORIDE 0.9% 500ML 500 ML IVS PRN (17:31)
--- NOTE | 2017-01-29 17:33 | ED.PDOC ---
History of Present Illness - General Chief Complaint: GI Problem Stated Complaint: feels bad, diarrhea for months Time Seen by Provider: 01/29/17 17:30 Source: patient Exam Limitations: no limitations - History of Present Illness Initial Comments: Penny Zamudio 71 y/o female with history of ESRD on hemodialysis and chronic diarrhea for several months stated that she had been having on and off diarrhea for the last one several months and occasional nausea/vomiting.Stated had c.diff infection in the past but was treated.Had been feeling weak recently. Timing/Duration: other - 30 DAYS Allergies/Adverse Reactions: Allergies Penicillins Allergy (Verified 04/08/16 18:53) Sulfa Antibiotics Allergy (Verified 04/08/16 18:53) Home Medications: Ambulatory Orders Cilostazol 50 mg PO BID 07/23/13 Diphenhydramine HCl [Benadryl] 25 mg PO PRN 07/23/13 Loperamide-Simethicone [Imodium Advanced 2-125 mg] 1 tab PO PRN 07/23/13 Sevelamer Carbonate [Renvela] 2,400 mg PO TID 07/23/13 Metoprolol Tartrate 100 mg PO BID 04/08/16 amLODIPine BESYLATE [Norvasc] 10 mg PO DAILY 04/08/16 Review of Systems - Review of Systems Constitutional: States: no symptoms reported EENTM: States: no symptoms reported Respiratory: States: no symptoms reported Cardiology: States: no symptoms reported Gastrointestinal/Abdominal: States: see HPI, diarrhea Genitourinary: States: see HPI Musculoskeletal: States: no symptoms reported Skin: States: no symptoms reported Past Medical History (General) - Patient Medical History Hx Stroke: No Hx Cardiac Disorders: Yes Hx Congestive Heart Failure: Yes Hx Hypertension: Yes Hx Diabetes: Yes Hx Gastroesophageal Reflux: Yes Hx Renal Disease: Yes Hx Cancer: No Hx Hepatitis C: No Hx MRSA: No Surgical History: cholecystectomy, tonsillectomy, other - hysterectomy;a-v fistula palcement - Vaccination History Hx Tetanus, Diphtheria Vaccination: No Hx Influenza Vaccination: Yes Hx Pneumococcal Vaccination: Yes - Social History Hx Tobacco Use: No Hx Chewing Tobacco Use: No Hx Alcohol Use: No Hx Substance Use: No Hx Substance Use Treatment: No Hx Depression: No Hx Physical Abuse: No Hx Emotional Abuse: No Hx Suspected Abuse: No - Activities of Daily Living Patient Lives Alone: Yes - Female History Patient : No Family Medical History - Family History Father Living Status: Hx Cardiac Disease: Yes Hx Family Diabetes: Yes Physical Exam - Physical Exam General Appearance: Alert, Anxious, No apparent distress Eye Exam: bilateral other - blurry vision Ears, Nose, Throat: hearing grossly normal, normal ENT inspection, normal pharynx Neck: non-tender, full range of motion, supple Respiratory: chest non-tender, lungs clear, normal breath sounds Cardiovascular/Chest: normal peripheral pulses, no murmur, irregularly irregular Peripheral Pulses: radial,right: 1+ - good bruits, radial,left: 1+ Gastrointestinal/Abdominal: non tender, soft, no organomegaly Back Exam: normal inspection, no vertebral tenderness Extremity: normal range of motion, non-tender, no pedal edema, no calf tenderness Neurologic: no motor/sensory deficits, alert, oriented x 3 Skin Exam: normal color Lymphatic: no adenopathy Progress - Progress Progress: 01/29/17 19:41 Vital Signs - 8 hr 01/29/17 01/29/17 01/29/17 17:20 17:31 19:25 Temperature 97.8 F 97.8 F Pulse Rate [ 68 74 monitor] Respiratory 16 16 16 Rate Blood Pressure 130/49 117/54 [Right Arm] O2 Sat by Pulse 98 96 Oximetry Vital Signs - 8 hr 01/29/17 01/29/17 01/29/17 17:20 17:31 19:25 Temperature 97.8 F 97.8 F Pulse Rate [ 68 74 monitor] Respiratory 16 16 16 Rate Blood Pressure 130/49 117/54 [Right Arm] O2 Sat by Pulse 98 96 Oximetry Laboratory Tests 01/29/17 01/29/17 17:41 17:41 WBC 5.7 RBC 3.73 L Hgb 11.2 L Hct 34.6 L MCV 92.6 MCH 30.0 MCHC 32.3 L RDW 16.8 H Plt Count 173 MPV 10.3 Absolute Neuts (auto) 4.20 Absolute Lymphs (auto) 0.70 L Absolute Monos (auto) 0.50 Absolute Eos (auto) 0.30 Absolute Basos (auto) 0.00 Neutrophils % 74.0 Lymphocytes % 12.2 L Monocytes % 8.2 Eosinophils % 5.1 H Basophils % 0.5 Sodium 133 L Potassium 5.3 H Chloride 98 L Carbon Dioxide 26 Anion Gap 14.3 BUN 72 H Creatinine 7.63 H* BUN/Creatinine Ratio 9.4 L Random Glucose 184 H Serum Osmolality 292.3 Calcium 10.0 Total Bilirubin 0.5 AST 16 ALT 24 Alkaline Phosphatase 117 Serum Total Protein 7.3 Albumin 3.4 Globulin 3.9 H Albumin/Globulin Ratio 0.9 L Departure - Departure Clinical Impression: ESRD (end stage renal disease) Diarrhea Qualifiers: Diarrhea type: unspecified type Qualified Code(s): R19.7 - Diarrhea, unspecified Time of Disposition: 19:49 Disposition: Discharge to Home or Self Care Departure Forms: ED Discharge - Pt. Copy, Patient Portal Self Enrollment Instructions: DI for Diarrhea and Traveler's Diarrhea -- Adult Referrals: SLIM ROCHA [Primary Care Provider] - 1-2 Weeks Home Medications: Ambulatory Orders Cilostazol 50 mg PO BID 07/23/13 Diphenhydramine HCl [Benadryl] 25 mg PO PRN 07/23/13 Loperamide-Simethicone [Imodium Advanced 2-125 mg] 1 tab PO PRN 07/23/13 Sevelamer Carbonate [Renvela] 2,400 mg PO TID 07/23/13 Metoprolol Tartrate 100 mg PO BID 04/08/16 amLODIPine BESYLATE [Norvasc] 10 mg PO DAILY 04/08/16 Additional Instructions: Avoid sugary juice;Need to read potassium content of foods or drinks;Talk with your md regarding Cilastozal which may cause also diarrhea;CALL Dr. ROCHA in am 01/30/2017 for follow up
[2017-01-29 20:00] VITALS: BP 117/59; O2SAT 95
== END 2017-01-29 20:01 | disposition home or self-care (01) ==
LOC: ER 17:17
DX: I13.2 Hypertensive heart and chronic kidney disease with heart failure and with stage 5 chronic kidney disease, or end stage renal disease (principal); E11.22 Type 2 diabetes mellitus with diabetic chronic kidney disease; N18.6 End stage renal disease; I50.9 Heart failure, unspecified; Z99.2 Dependence on renal dialysis; Z88.0 Allergy status to penicillin; Z88.2 Allergy status to sulfonamides
CPT/HCPCS: 36415; 80053; 85025; J7040

== ENCOUNTER 2017-02-03 22:50 | Emergency (ER) | payer MEDICARE, OTHER ==
[2017-02-03 23:07] VITALS: TEMP 98.4
--- NOTE | 2017-02-03 23:42 | RAD ---
EXAM DESCRIPTION: Abdomen Series CLINICAL HISTORY: abdominal pain COMPARISON: Report from 01/22/2017 FINDINGS: Single view of the chest with 2 views of the abdomen. Atherosclerotic calcification of the aortic arch. Cardiomegaly. Pulmonary vascular congestion with interstitial edema. No pneumothorax. Upright and supine views of the abdomen demonstrate nondilated air-filled loops of large and small bowel. Degenerative change of the spine and hips. No definite free intraperitoneal air. IMPRESSION: 1. Cardiomegaly with interstitial pulmonary edema. 2. Nonobstructive bowel gas pattern. Electronically signed by: Andres Castanon 02/03/2017 11:41 PM CDT
[2017-02-03] MEDS: MAGNESIUM HYDROXIDE 30 ML UD PO ONE (23:50)
--- NOTE | 2017-02-03 23:52 | ED.PDOC ---
History of Present Illness - General Chief Complaint: General Stated Complaint: possible constipation, weakness Time Seen by Provider: 02/03/17 23:07 Source: patient Exam Limitations: no limitations - History of Present Illness Initial Comments: The patient is a 71-year-old female presenting to the emergency room secondary some abdominal cramping. She has had constipation for about the last week. No fevers. She does have a history of hypoxia and has not been wearing her oxygen as well. She does feel fatigued. She is not hungry. Timing/Duration: unsure Severity: mild Improving Factors: nothing Worsening Factors: nothing Associated Symptoms: loss of appetite, malaise Allergies/Adverse Reactions: Allergies Penicillins Allergy (Verified 04/08/16 18:53) Sulfa Antibiotics Allergy (Verified 04/08/16 18:53) Home Medications: Ambulatory Orders Cilostazol 50 mg PO BID 07/23/13 Diphenhydramine HCl [Benadryl] 25 mg PO PRN 07/23/13 Loperamide-Simethicone [Imodium Advanced 2-125 mg] 1 tab PO PRN 07/23/13 Sevelamer Carbonate [Renvela] 2,400 mg PO TID 07/23/13 Metoprolol Tartrate 100 mg PO BID 04/08/16 amLODIPine BESYLATE [Norvasc] 10 mg PO DAILY 04/08/16 Levemir Pen 02/03/17 Novolin R 02/03/17 Review of Systems - Review of Systems Constitutional: States: malaise EENTM: States: no symptoms reported Respiratory: States: no symptoms reported Cardiology: States: no symptoms reported Gastrointestinal/Abdominal: States: abdominal pain, constipation Genitourinary: States: no symptoms reported Musculoskeletal: States: no symptoms reported Skin: States: no symptoms reported Neurological: States: no symptoms reported Endocrine: States: no symptoms reported All other Systems: No Change from Baseline Past Medical History (General) - Patient Medical History Hx Stroke: No Hx Cardiac Disorders: Yes Hx Congestive Heart Failure: Yes Hx Hypertension: Yes Hx Diabetes: Yes Hx Gastroesophageal Reflux: Yes Hx Renal Disease: Yes Hx Cancer: No Hx Hepatitis C: No Hx MRSA: No - Vaccination History Hx Tetanus, Diphtheria Vaccination: No Hx Influenza Vaccination: Yes Hx Pneumococcal Vaccination: Yes - Social History Hx Tobacco Use: No Hx Chewing Tobacco Use: No Hx Alcohol Use: No Hx Substance Use: No Hx Substance Use Treatment: No Hx Depression: No Hx Physical Abuse: No Hx Emotional Abuse: No Hx Suspected Abuse: No - Female History Patient : No Family Medical History - Family History Father Living Status: Hx Cardiac Disease: Yes Hx Family Diabetes: Yes Physical Exam - Physical Exam General Appearance: Alert, Comfortable, No apparent distress Eye Exam: bilateral normal Ears, Nose, Throat: hearing grossly normal, normal ENT inspection, normal pharynx Neck: full range of motion, supple Respiratory: no respiratory distress, no accessory muscle use, other - very mild basilar rales which is not new Cardiovascular/Chest: normal peripheral pulses, no edema, other - irregular rhythm but regular rate which is not new Peripheral Pulses: radial,right: 2+, radial,left: 2+ Gastrointestinal/Abdominal: soft, other - o rebound or peritoneal signs. Diffuse discomfort to palpation. No definite palpable masses. Rectal Exam: deferred Back Exam: no CVA tenderness, no vertebral tenderness Extremity: normal range of motion, non-tender, normal inspection, no pedal edema , normal capillary refill Neurologic: title clerk II-XII nml as tested, alert, other - he patient does have some dementia Skin Exam: pallor - which is not new Comments: Vital Signs - 24 hr 02/03/17 02/03/17 02/03/17 23:04 23:23 23:24 Temperature 98.4 F Pulse Rate [ 74 Left] Respiratory 16 Rate Blood Pressure 157/77 [Right Arm] O2 Sat by Pulse 89 L 91 L Oximetry Progress - Progress Progress: 02/03/17 23:52 the patient is a 71-year-old female presenting to the emergency room secondary to abdominal cramping. She has been having some mild constipation secondary to recent dietary changes. She is given one dose of milk of magnesia here tonight for that problem. The patient needs to keep well-hydrated. She also needs to be sure to keep her dialysis appointments. Additionally she does need to keep her oxygen on any time that she is sleeping. Her oxygen saturations dropped down into the mid 80s without supplemental oxygen. She needs to keep follow-up with her primary care doctor later this week. ER warnings were given for any significant worsening. - Results/Orders Results/Orders: chest x-ray shows chronic changes from her COPD as well as her long-standing history of congestive heart failure. Abdominal x-ray shows no evidence of free air. No evidence of obstruction. There is moderate stool. Departure - Departure Clinical Impression: Constipation Qualifiers: Constipation type: unspecified constipation type Qualified Code(s): K59.00 - Constipation, unspecified Disposition: Discharge to Home or Self Care Condition: Fair Departure Forms: ED Discharge - Pt. Copy, Patient Portal Self Enrollment Instructions: DI for Constipation Diet: regular diet - high-fiber diabetic Activity: increase activity as tolerated Referrals: SLIM ROCHA [Primary Care Provider] - 1-2 Weeks Home Medications: Ambulatory Orders Cilostazol 50 mg PO BID 07/23/13 Diphenhydramine HCl [Benadryl] 25 mg PO PRN 07/23/13 Loperamide-Simethicone [Imodium Advanced 2-125 mg] 1 tab PO PRN 07/23/13 Sevelamer Carbonate [Renvela] 2,400 mg PO TID 07/23/13 Metoprolol Tartrate 100 mg PO BID 04/08/16 amLODIPine BESYLATE [Norvasc] 10 mg PO DAILY 04/08/16 Levemir Pen 02/03/17 Novolin R 02/03/17 Additional Instructions: the patient is a 71-year-old female presenting to the emergency room secondary to abdominal cramping. She has been having some mild constipation secondary to recent dietary changes. She is given one dose of milk of magnesia here tonight for that problem. The patient needs to keep well-hydrated. She also needs to be sure to keep her dialysis appointments. Additionally she does need to keep her oxygen on any time that she is sleeping. Her oxygen saturations dropped down into the mid 80s without supplemental oxygen. She needs to keep follow-up with her primary care doctor later this week. ER warnings were given for any significant worsening.
[2017-02-03] MEDS: SIMETHICONE 80 MG TAB PO ONE (23:53)
[2017-02-04 00:11] VITALS: BP 153/86; O2SAT 95
== END 2017-02-04 00:11 | disposition home or self-care (01) ==
LOC: ER 22:50
DX: K59.00 Constipation, unspecified (principal); J44.9 Chronic obstructive pulmonary disease, unspecified; I11.0 Hypertensive heart disease with heart failure; I50.9 Heart failure, unspecified; E11.9 Type 2 diabetes mellitus without complications; K21.9 Gastro-esophageal reflux disease without esophagitis; Z88.0 Allergy status to penicillin; Z88.2 Allergy status to sulfonamides

== ENCOUNTER 2017-02-10 22:47 | Emergency (ER) | payer MEDICARE, OTHER ==
[2017-02-10 22:56] VITALS: TEMP 98.8
--- NOTE | 2017-02-10 23:09 | ED.PDOC ---
History of Present Illness - General Chief Complaint: GI Problem Stated Complaint: nausea, dizzy Time Seen by Provider: 02/10/17 22:59 Source: patient, RN notes reviewed, Vital Signs reviewed, EMS Exam Limitations: no limitations - History of Present Illness Initial Comments: Patient comes to ER via EMS with c/o "I just don't feel good". She reports nausea and vomiting that started this morning. Back and arms hurt. Could not get her oxygen level to come up. Timing/Duration: constant - since this morning Severity: moderate Improving Factors: nothing Worsening Factors: nothing Associated Symptoms: malaise, nausea/vomiting, weakness Allergies/Adverse Reactions: Allergies Penicillins Allergy (Verified 02/10/17 23:16) Sulfa Antibiotics Allergy (Verified 02/10/17 23:16) Home Medications: Ambulatory Orders Cilostazol 50 mg PO BID 07/23/13 Diphenhydramine HCl [Benadryl] 25 mg PO PRN 07/23/13 Loperamide-Simethicone [Imodium Advanced 2-125 mg] 1 tab PO PRN 07/23/13 Sevelamer Carbonate [Renvela] 2,400 mg PO TID 07/23/13 Metoprolol Tartrate 100 mg PO BID 04/08/16 amLODIPine BESYLATE [Norvasc] 10 mg PO DAILY 04/08/16 Levemir Pen 02/03/17 Novolin R 02/03/17 Review of Systems - Review of Systems Constitutional: States: malaise, weakness. Denies: chills, fever EENTM: States: no symptoms reported Respiratory: States: see HPI. Denies: cough, short of breath - but could not get her O2 level up at home. Cardiology: States: no symptoms reported. Denies: chest pain, palpitations Gastrointestinal/Abdominal: States: constipation - recent episode ~ 1 week ago, diarrhea - seen here for this ~2 weeks ago, nausea, vomiting. Denies: abdominal pain Musculoskeletal: States: back pain, other - arms hurt - "hurts all over" Skin: States: no symptoms reported Neurological: States: no symptoms reported All other Systems: No Change from Baseline Past Medical History (General) - Patient Medical History Hx Stroke: No Hx Cardiac Disorders: Yes Hx Congestive Heart Failure: Yes Hx Hypertension: Yes Hx Diabetes: Yes Hx Gastroesophageal Reflux: Yes Hx Renal Disease: Yes Hx Cancer: No Hx Hepatitis C: No Hx MRSA: No - Vaccination History Hx Tetanus, Diphtheria Vaccination: No Hx Influenza Vaccination: Yes Hx Pneumococcal Vaccination: Yes - Social History Hx Tobacco Use: No Hx Chewing Tobacco Use: No Hx Alcohol Use: No Hx Substance Use: No Hx Substance Use Treatment: No Hx Depression: No Hx Physical Abuse: No Hx Emotional Abuse: No Hx Suspected Abuse: No - Female History Patient : No Family Medical History - Family History Father Living Status: Hx Cardiac Disease: Yes Hx Family Diabetes: Yes Physical Exam - Physical Exam General Appearance: Alert, No apparent distress, Well Developed, Well Groomed, Well Hydrated, Well Nourished Ears, Nose, Throat: hearing grossly normal, normal pharynx Neck: supple, normal inspection Cardiovascular/Chest: no gallop, systolic murmur, irregularly irregular Gastrointestinal/Abdominal: normal bowel sounds, soft, tenderness - generalized w/o guarding or rebound Neurologic: alert, normal mood/affect, oriented x 3 Skin Exam: pallor - Not a change Comments: Vital Signs 02/10/17 02/10/17 22:52 23:06 Temperature 98.8 F Pulse Rate [ 84 Right] Respiratory 16 18 Rate Blood Pressure 157/75 [Right Arm] O2 Sat by Pulse 84 L Oximetry Progress - Progress Progress: 02/11/17 00:[address] Ivan @ [facility] [place] - would like patient on BIPAP to stabilize her O2 sats, IV Lasix and IV NTG drip prior to transfer. - Results/Orders Results/Orders: Laboratory Tests 02/10/17 02/10/17 02/10/17 22:34 22:34 22:34 WBC 8.7 RBC 3.96 L Hgb 11.3 L Hct 35.5 L MCV 89.6 MCH 28.5 MCHC 31.9 L RDW 18.1 H Plt Count 165 MPV 11.2 H Absolute Neuts (auto) 7.30 H Absolute Lymphs (auto) 0.70 L Absolute Monos (auto) 0.60 Absolute Eos (auto) 0.10 Absolute Basos (auto) 0.10 Neutrophils % 83.6 H Lymphocytes % 7.9 L Monocytes % 7.1 Eosinophils % 0.7 L Basophils % 0.7 D-Dimer, Quantitative 626 H* Sodium 137 Potassium 6.1 H Chloride 96 L Carbon Dioxide 30 Anion Gap 17.1 BUN 62 H Creatinine 6.95 H* BUN/Creatinine Ratio 8.9 L Random Glucose 122 H Serum Osmolality 292.7 Calcium 9.8 Total Bilirubin 0.7 AST 28 ALT 40 Alkaline Phosphatase 146 H Creatine Kinase 16 L CK-MB (CK-2) 0.6 CK-MB (CK-2) % Not Reportable Troponin I 0.03 B-Natriuretic Peptide > 5000.0 H* Serum Total Protein 7.8 Albumin 3.5 Globulin 4.3 H Albumin/Globulin Ratio 0.8 L - EKG/XRAY/CT EKG: Atrial, Fibrillation, nonspecific ST T wave Chg, Changed from - 12/17/16 but appears improved Comments: Rate 90 bpm XRAY: chest - mild pulm edema, sm bilateral pleural effusions & bibasilar atelectasis &/or infiltrate per Rad Departure - Departure Clinical Impression: ESRD (end stage renal disease), Nausea and vomiting in adult patient Acute exacerbation of congestive heart failure Qualifiers: Congestive heart failure type: unspecified congestive heart failure type Qualified Code(s): I50.9 - Heart failure, unspecified Time of Disposition: 00:43 Disposition: Transfer to Hospital Condition: Poor Departure Forms: ED Discharge - Pt. Copy, Patient Portal Self Enrollment Referrals: SLIM ROCHA [Primary Care Provider] - 1-2 Weeks Home Medications: Ambulatory Orders Cilostazol 50 mg PO BID 07/23/13 Diphenhydramine HCl [Benadryl] 25 mg PO PRN 07/23/13 Loperamide-Simethicone [Imodium Advanced 2-125 mg] 1 tab PO PRN 07/23/13 Sevelamer Carbonate [Renvela] 2,400 mg PO TID 07/23/13 Metoprolol Tartrate 100 mg PO BID 04/08/16 amLODIPine BESYLATE [Norvasc] 10 mg PO DAILY 04/08/16 Levemir Pen 02/03/17 Novolin R 02/03/17 Transfer to Outside Facility - Transfer Information Accepting Provider:: Dr. Ivan Accepting Facility: [facility] Reason for Transfer: specialized care not available
--- NOTE | 2017-02-10 23:44 | RAD ---
Procedure: XR CHEST 1 VIEW Exam Date: 02/10/2017 Ordering Provider: Yolis Francis Clinical Indication: Hypoxia/back pain Comparison: 01/22/2017 Findings: Cardiac silhouette: Enlarged Pulmonary vasculature : Prominent Mediastinal contour: Normal Aortic contour: Aortic calcification Focal lung consolidation: Bibasilar atelectasis and/or infiltrate. Pleural effusion: Small bilateral pleural effusions. Pneumothorax: None Acute bony or soft tissue abnormality: None Impression: 1. Mild pulmonary edema. 2. Bibasilar atelectasis and/or infiltrate. 3. Small bilateral pleural effusions. Electronically signed by: Kike Ross MD 02/10/2017 11:42 PM CDT
[2017-02-11] MEDS ORDERED: FUROSEMIDE INJ 40 MG/4 ML VIAL IV ONE (00:21)
[2017-02-11] MEDS ORDERED: NITROGLYCERIN/D5W IV 50,000 MCG in PREMIX BOTTLE 1 BOTTLE IVS SCH (00:30)
[2017-02-11] MEDS ORDERED: NITROGLYCERIN/D5W IV 250 ML IVS ONE (00:43)
[2017-02-11 01:19] VITALS: BP 147/69; O2SAT 95
== END 2017-02-11 01:32 | disposition short-term general hospital (02) ==
LOC: ER 22:47
DX: I13.2 Hypertensive heart and chronic kidney disease with heart failure and with stage 5 chronic kidney disease, or end stage renal disease (principal); E11.22 Type 2 diabetes mellitus with diabetic chronic kidney disease; N18.6 End stage renal disease; I50.9 Heart failure, unspecified; R11.2 Nausea with vomiting, unspecified; Z79.4 Long term (current) use of insulin; Z79.899 Other long term (current) drug therapy; Z88.2 Allergy status to sulfonamides; Z88.0 Allergy status to penicillin
CPT/HCPCS: 36415; 71010; 80053; 82550; 82553; 83880; 84484; 85025; 85379; 93005; 94660; J1940

== ENCOUNTER 2017-02-25 06:11 | Emergency (ER) | payer MEDICARE, OTHER ==
[2017-02-25] MEDS ORDERED: LEVALBUTEROL NEBS 1.25 MG/3 ML VIAL NEB ONE (06:23)
[2017-02-25 06:29] VITALS: TEMP 97.7
--- NOTE | 2017-02-25 06:49 | ED.PDOC ---
History of Present Illness - General Source: patient, RN notes reviewed, Vital Signs reviewed Exam Limitations: no limitations - History of Present Illness Initial Comments: Patient presents to ER via EMS with c/o of progressively worsening SOB for the past 4 days. Also c/o hurting all over. Denies fever, chills and BLANCHARD. + cough, chest pain "I hurt all over" and abdominal pain. Initially Oxygen Saturation was 59% on room air. Currently 90% on Non-rebreather. Timing/Duration: days - 4, getting worse Severity: severe Activities at Onset: none Possible Cause: unknown cause Improving Factors: nothing Worsening Factors: movement Associated Symptoms: chest pain, cough, pain - generalized Respiratory Risk Factors: no cause identified <Yolis Francis - Last Filed: 02/25/17 06:55> <Juan Arora - Last Filed: 02/25/17 09:52> - General Chief Complaint: Respiratory Problem Stated Complaint: short of breath Time Seen by Provider: 02/25/17 06:25 - History of Present Illness Allergies/Adverse Reactions: Allergies Penicillins Allergy (Verified 02/10/17 23:16) Sulfa Antibiotics Allergy (Verified 02/10/17 23:16) Home Medications: Ambulatory Orders Cilostazol 50 mg PO BID 07/23/13 Diphenhydramine HCl [Benadryl] 25 mg PO PRN 07/23/13 Loperamide-Simethicone [Imodium Advanced 2-125 mg] 1 tab PO PRN 07/23/13 Sevelamer Carbonate [Renvela] 2,400 mg PO TID 07/23/13 Metoprolol Tartrate 100 mg PO BID 04/08/16 amLODIPine BESYLATE [Norvasc] 10 mg PO DAILY 04/08/16 Levemir Pen 02/03/17 Novolin R 02/03/17 Review of Systems - Review of Systems Constitutional: States: malaise. Denies: chills, fever EENTM: States: no symptoms reported Respiratory: States: see HPI, cough, short of breath Cardiology: States: see HPI, chest pain. Denies: edema, palpitations Gastrointestinal/Abdominal: States: see HPI, abdominal pain. Denies: constipation, diarrhea, nausea, vomiting Musculoskeletal: States: no symptoms reported Skin: States: no symptoms reported Neurological: States: no symptoms reported. Denies: headache All other Systems: No Change from Baseline <Yolis Francis Last Filed: 02/25/17 06:55> Past Medical History (General) - Patient Medical History Hx Stroke: No Hx Cardiac Disorders: Yes Hx Congestive Heart Failure: Yes Hx Hypertension: Yes Hx Diabetes: Yes Hx Gastroesophageal Reflux: Yes Hx Renal Disease: Yes Hx Cancer: No Hx Hepatitis C: No Hx MRSA: No - Vaccination History Hx Tetanus, Diphtheria Vaccination: No Hx Influenza Vaccination: Yes Hx Pneumococcal Vaccination: Yes - Social History Hx Tobacco Use: No Hx Chewing Tobacco Use: No Hx Alcohol Use: No Hx Substance Use: No Hx Substance Use Treatment: No Hx Depression: No Hx Physical Abuse: No Hx Emotional Abuse: No Hx Suspected Abuse: No - Activities of Daily Living Long Term/Assisted Living (if applicable):: [facility] - Female History Patient : No - Triage Comment ED Triage Comment: Pt short of breath, onset aTh per pt. Dialysis M-W-F <Yolis Francis Last Filed: 02/25/17 06:55> Family Medical History - Family History Father Living Status: Hx Cardiac Disease: Yes Hx Family Diabetes: Yes <Yolis Francis Filed: 02/25/17 06:55> Physical Exam - Physical Exam General Appearance: Alert, Frail, Ill Appearing, Well Developed, Well Groomed Neck: full range of motion, supple, normal inspection Respiratory: respiratory distress, decreased breath sounds - R base>L, accessory muscle use Cardiovascular/Chest: regular rate, rhythm, no edema, no gallop, no murmur Peripheral Pulses: posterior tibialis,right: 1+, posterior tibialis,left: 1+ Gastrointestinal/Abdominal: normal bowel sounds, soft, no organomegaly, tenderness - mild generalized tenderness w/o guarding or rebound Extremity: normal inspection, no pedal edema Neurologic: alert, normal mood/affect, oriented x 3 Skin Exam: normal color, warm/dry Comments: Vital Signs 02/25/17 02/25/17 06:24 06:29 Temperature 97.7 F Pulse Rate [ 94 H Left] Respiratory 38 H 38 H Rate Blood Pressure 162/94 [Right Arm] O2 Sat by Pulse 59 L Oximetry <Yolis Francis Last Filed: 02/25/17 06:55> Progress - Progress Progress: 02/25/17 06:[address] Arora @ 07:00 <Yolis Francis - Last Filed: 02/25/17 06:55> - Progress Progress: 02/25/17 09:48 Last Vital Signs Temp 97.7 F 02/25/17 06:24 Pulse 95 H 02/25/17 09:31 Resp 31 H 02/25/17 09:31 BP 170/91 02/25/17 09:31 Pulse Ox 85 L 02/25/17 09:31 Laboratory Tests 02/25/17 02/25/17 02/25/17 06:45 06:45 07:01 WBC 8.3 RBC 4.05 L Hgb 11.2 L Hct 35.1 L MCV 86.7 MCH 27.6 MCHC 31.8 L RDW 18.1 H Plt Count 145 MPV 11.4 H Absolute Neuts (auto) 7.00 H Absolute Lymphs (auto) 0.50 L Absolute Monos (auto) 0.70 Absolute Eos (auto) 0.00 Absolute Basos (auto) 0.10 Neutrophils % 84.4 H Lymphocytes % 6.6 L Monocytes % 7.9 Eosinophils % 0.3 L Basophils % 0.8 D-Dimer, Quantitative 454 H* Sodium 137 Potassium 4.6 Chloride 92 L Carbon Dioxide 29 Anion Gap 20.6 H BUN 79 H Creatinine 6.78 H* BUN/Creatinine Ratio 11.7 Random Glucose 186 H Serum Osmolality 302.4 H Lactic Acid Calcium 9.2 Total Bilirubin 0.9 AST 31 ALT 34 Alkaline Phosphatase 128 H Creatine Kinase 28 CK-MB (CK-2) 0.8 CK-MB (CK-2) % Not Reportable Troponin I 0.03 B-Natriuretic Peptide 4900.0 H* Serum Total Protein 8.2 Albumin 3.5 Globulin 4.7 H Albumin/Globulin Ratio 0.7 L 02/25/17 07:23 WBC RBC Hgb Hct MCV MCH MCHC RDW Plt Count MPV Absolute Neuts (auto) Absolute Lymphs (auto) Absolute Monos (auto) Absolute Eos (auto) Absolute Basos (auto) Neutrophils % Lymphocytes % Monocytes % Eosinophils % Basophils % D-Dimer, Quantitative Sodium Potassium Chloride Carbon Dioxide Anion Gap BUN Creatinine BUN/Creatinine Ratio Random Glucose Serum Osmolality Lactic Acid 1.4 Calcium Total Bilirubin AST ALT Alkaline Phosphatase Creatine Kinase CK-MB (CK-2) CK-MB (CK-2) % Troponin I B-Natriuretic Peptide Serum Total Protein Albumin Globulin Albumin/Globulin Ratio - EKG/XRAY/CT EKG: Atrial, Fibrillation Comments: heart rate-95 RAD XRAY: chest - cardiomegaly ,bibasilar consolidation,interstitial edema,right pleural effusion <Afshan Arorasara Madrigal - Last Filed: 02/25/17 09:52> Departure <Yolis Francis - Last Filed: 02/25/17 06:55> - Departure Time of Disposition: 09:51 <Afshan Aroraasra Madrigal - Last Filed: 02/25/17 09:52> - Departure Clinical Impression: ESRD (end stage renal disease) on dialysis, Atrial fibrillation with rapid ventricular response Fluid overload Qualifiers: Hypervolemia type: other Qualified Code(s): E87.79 - Other fluid overload Respiratory failure Qualifiers: Chronicity: unspecified Respiratory failure complication: hypoxia Qualified Code(s): J96.91 - Respiratory failure, unspecified with hypoxia Disposition: Transfer to Hospital Condition: Fair Departure Forms: Patient Portal Self Enrollment Referrals: SLIM ROCHA [Primary Care Provider] - 1-2 Weeks Home Medications: Ambulatory Orders Cilostazol 50 mg PO BID 07/23/13 Diphenhydramine HCl [Benadryl] 25 mg PO PRN 07/23/13 Loperamide-Simethicone [Imodium Advanced 2-125 mg] 1 tab PO PRN 07/23/13 Sevelamer Carbonate [Renvela] 2,400 mg PO TID 07/23/13 Metoprolol Tartrate 100 mg PO BID 04/08/16 amLODIPine BESYLATE [Norvasc] 10 mg PO DAILY 04/08/16 Levemir Pen 02/03/17 Novolin R 02/03/17 Transfer to Outside Facility - Transfer Information Accepting Provider:: Dr. Alvaro MENJIVAR Md Accepting Facility: [facility] Reason for Transfer: required specialist not available <Chuy Aroravictoriano Madrigal - Last Filed: 02/25/17 09:52>
--- NOTE | 2017-02-25 07:35 | RAD ---
Study: Single Frontal View of the Chest. Indication:SOB/Hypoxia/CP Comparison: February 10, 2017. Impression: Cardiomegaly. Progressive bibasilar consolidation and interstitial edema. Pulmonary edema or pneumonia can give this appearance. Small to moderate left and small right pleural effusions. No pneumothorax. Osteopenia. If this is a new finding, DEXA scan recommended as well as evaluation for possible osteoporosis treatment. Electronically signed by: Moise Vegas MD 02/25/2017 7:34 AM CANE BURNER
[2017-02-25] MEDS ORDERED: ONDANSETRON ODT 8 MG TAB SL ONE (07:49)
[2017-02-25 10:58] VITALS: BP 171/89; O2SAT 90
== END 2017-02-25 10:45 | disposition short-term general hospital (02) ==
LOC: ER 06:11
DX: J96.91 Respiratory failure, unspecified with hypoxia (principal); E87.79 Other fluid overload; I13.2 Hypertensive heart and chronic kidney disease with heart failure and with stage 5 chronic kidney disease, or end stage renal disease; E11.22 Type 2 diabetes mellitus with diabetic chronic kidney disease; N18.6 End stage renal disease; I50.9 Heart failure, unspecified; Z99.2 Dependence on renal dialysis; Z79.4 Long term (current) use of insulin; Z79.899 Other long term (current) drug therapy; Z88.0 Allergy status to penicillin; Z88.2 Allergy status to sulfonamides
CPT/HCPCS: 36415; 36600; 71010; 80053; 82550; 82553; 82803; 82805; 83605; 83880; 84484; 85025; 85379; 87040; 93005; J7614

== ENCOUNTER 2017-04-03 13:43 | Emergency (ER) | payer MEDICARE, OTHER ==
[2017-04-03 14:08] VITALS: TEMP 98
--- NOTE | 2017-04-03 16:50 | ED.PDOC ---
History of Present Illness - General Chief Complaint: Blood Pressure Problem Stated Complaint: low BP,hypotensive at dialysis Time Seen by Provider: 04/03/17 15:02 Source: patient, RN notes reviewed, Vital Signs reviewed, family Additional Information: Patient felt weak and reportedly had a drop in BP at dialysis. EMS brought patient to ED. BP normal. Pt states she felt better. However, she was noted to have a significant supplemental oxygen requirement and she was tachycardic. - History of Present Illness Timing/Duration: 1-3 hours - AUTO DETAILER Severity: severe Improving Factors: nothing Worsening Factors: nothing Associated Symptoms: shortness of breath, weakness Allergies/Adverse Reactions: Allergies Penicillins Allergy (Verified 02/10/17 23:16) Sulfa Antibiotics Allergy (Verified 02/10/17 23:16) Home Medications: Ambulatory Orders Cilostazol 50 mg PO BID 07/23/13 Diphenhydramine HCl [Benadryl] 25 mg PO PRN 07/23/13 Loperamide-Simethicone [Imodium Advanced 2-125 mg] 1 tab PO PRN 07/23/13 Sevelamer Carbonate [Renvela] 2,400 mg PO TID 07/23/13 Metoprolol Tartrate 100 mg PO BID 04/08/16 amLODIPine BESYLATE [Norvasc] 10 mg PO DAILY 04/08/16 Levemir Pen 02/03/17 Novolin R 02/03/17 Review of Systems - Review of Systems Constitutional: States: see HPI, weakness EENTM: States: no symptoms reported Respiratory: States: see HPI, short of breath Gastrointestinal/Abdominal: States: no symptoms reported Genitourinary: States: other - ESRD - on Dialysis M, W, F Musculoskeletal: States: no symptoms reported Skin: States: no symptoms reported Neurological: States: no symptoms reported - but she does appear to have some dementia Endocrine: States: no symptoms reported Hematologic/Lymphatic: States: no symptoms reported Past Medical History (General) - Patient Medical History Hx Stroke: No Hx Cardiac Disorders: Yes Hx Congestive Heart Failure: No Hx Hypertension: Yes Hx Diabetes: Yes Hx Gastroesophageal Reflux: Yes Hx Renal Disease: Yes - ESRD Hx Cancer: No Hx Hepatitis C: No Hx MRSA: No Surgical History: appendectomy, cholecystectomy, tonsillectomy - Vaccination History Hx Tetanus, Diphtheria Vaccination: No Hx Influenza Vaccination: Yes Hx Pneumococcal Vaccination: Yes - Social History Hx Tobacco Use: No Hx Chewing Tobacco Use: No Hx Alcohol Use: No Hx Substance Use: No Hx Substance Use Treatment: No Hx Depression: No Hx Physical Abuse: No Hx Emotional Abuse: No Hx Suspected Abuse: No - Female History Patient : No Family Medical History - Family History Father Living Status: Hx Cardiac Disease: Yes Hx Family Diabetes: Yes Physical Exam - Physical Exam General Appearance: Frail, No apparent distress Eye Exam: bilateral normal Ears, Nose, Throat: hearing grossly normal, normal ENT inspection, normal pharynx Neck: non-tender, full range of motion, supple Respiratory: crackles, rales - throughout lung yang. Velcro. Cardiovascular/Chest: tachycardia Gastrointestinal/Abdominal: non tender, soft Extremity: normal range of motion, non-tender Neurologic: manager line II-XII nml as tested, no motor/sensory deficits, alert, normal mood/affect Skin Exam: normal color Progress - Progress Progress: 04/03/17 18:05 ESRD with fluid overload, tachycardia, and hypoxia. 04/03/17 18:07 Case discussed with patient's [employer] Professor who agrees with plan to have patient complete dialysis tonight at [facility]. - Results/Orders Results/Orders: Chest X-ray Report: EXAM DESCRIPTION: Chest,1 View CLINICAL HISTORY: 71 years Female, hypoxia. CKD. Assess for pulm edema. COMPARISON: February 25, 2017 TECHNIQUE: AP portable chest. FINDINGS: Markedly abnormal chest with marked cardiomegaly and central vascular congestion and coarse peripheral interstitial changes throughout both lungs are present in very similar but slightly less severe than that seen on prior chest x-ray. Cardiac decompensation and volume overload with at least small to modest basilar effusions and basilar infiltrate or edema is suspected. The overall changes are slightly less severe than seen five weeks earlier. IMPRESSION: Markedly abnormal chest consistent with cardiomegaly and volume overload and pulmonary edema with basilar effusions. Electronically signed by: Juan Jose Del Valle MD 04/03/2017 5:27 PM STRUCTURES ASSEMBLER Laboratory Results - last 24 hr 04/03/17 04/03/17 04/03/17 14:14 14:47 14:47 WBC 6.0 RBC 3.12 L Hgb 8.6 L Hct 27.4 L MCV 87.7 MCH 27.5 MCHC 31.4 L RDW 20.0 H Plt Count 155 MPV 9.0 Absolute Neuts (auto) 4.50 Absolute Lymphs (auto) 0.70 L Absolute Monos (auto) 0.40 Absolute Eos (auto) 0.30 Absolute Basos (auto) 0.10 Neutrophils % 75.8 Lymphocytes % 11.5 L Monocytes % 6.9 Eosinophils % 4.5 Basophils % 1.3 Sodium 142 Potassium 5.4 H Chloride 95 L Carbon Dioxide 35 H Anion Gap 17.4 BUN 29 H Creatinine 3.75 H BUN/Creatinine Ratio 7.7 L POC Glucose 101 Random Glucose 99 Serum Osmolality 289.0 Calcium 7.4 L Total Bilirubin 0.5 AST 22 ALT 20 Alkaline Phosphatase 116 Serum Total Protein 7.0 Albumin 2.8 L Globulin 4.2 H Albumin/Globulin Ratio 0.7 L 04/03/17 04/03/17 04/03/17 14:04 14:56 15:00 Temperature 98 F Pulse Rate [ 116 H 116 H 116 H Right Brachial] Respiratory 16 20 Rate Blood Pressure 124/65 119/61 [Right Arm] O2 Sat by Pulse 86 L 90 L Oximetry 04/03/17 04/03/17 16:00 17:00 Temperature Pulse Rate [ 113 H 112 H Right Brachial] Respiratory 20 20 Rate Blood Pressure 114/54 114/61 [Right Arm] O2 Sat by Pulse 91 L 94 L Oximetry - EKG/XRAY/CT EKG: Sinus, Tachy XRAY: chest - see above Departure - Departure Clinical Impression: End stage renal disease, Hypoxia Fluid overload Qualifiers: Hypervolemia type: unspecified Qualified Code(s): E87.70 - Fluid overload, unspecified Disposition: Transfer to Hospital Departure Forms: ED Discharge - Pt. Copy, Patient Portal Self Enrollment Instructions: DI for High Blood Pressure Referrals: DAVID EVANS [Primary Care Provider] - 1-5 Days Home Medications: Ambulatory Orders Cilostazol 50 mg PO BID 07/23/13 Diphenhydramine HCl [Benadryl] 25 mg PO PRN 07/23/13 Loperamide-Simethicone [Imodium Advanced 2-125 mg] 1 tab PO PRN 07/23/13 Sevelamer Carbonate [Renvela] 2,400 mg PO TID 07/23/13 Metoprolol Tartrate 100 mg PO BID 04/08/16 amLODIPine BESYLATE [Norvasc] 10 mg PO DAILY 04/08/16 Levemir Pen 02/03/17 Novolin R 02/03/17 Transfer to Outside Facility - Transfer Information Accepting Provider:: Dr. Feliz (Content Specialist), Dr. Grant (Hospitalist) Accepting Facility: [facility] Reason for Transfer: required specialist not available - Nephrology/Dialysis
--- NOTE | 2017-04-03 17:28 | RAD ---
EXAM DESCRIPTION: Chest,1 View CLINICAL HISTORY: 71 years Female, hypoxia. CKD. Assess for pulm edema. COMPARISON: February 25, 2017 TECHNIQUE: AP portable chest. FINDINGS: Markedly abnormal chest with marked cardiomegaly and central vascular congestion and coarse peripheral interstitial changes throughout both lungs are present in very similar but slightly less severe than that seen on prior chest x-ray. Cardiac decompensation and volume overload with at least small to modest basilar effusions and basilar infiltrate or edema is suspected. The overall changes are slightly less severe than seen five weeks earlier. IMPRESSION: Markedly abnormal chest consistent with cardiomegaly and volume overload and pulmonary edema with basilar effusions. Electronically signed by: Juan Jose Del Valle MD 04/03/2017 5:27 PM LUMBER ESTIMATOR
[2017-04-03 17:53] VITALS: O2SAT 94
[2017-04-03 18:38] VITALS: BP 136/70
== END 2017-04-03 18:37 | disposition short-term general hospital (02) ==
LOC: ER 13:43
DX: N18.6 End stage renal disease (principal); E87.70 Fluid overload, unspecified; R09.02 Hypoxemia; R00.0 Tachycardia, unspecified; E11.22 Type 2 diabetes mellitus with diabetic chronic kidney disease; I12.0 Hypertensive chronic kidney disease with stage 5 chronic kidney disease or end stage renal disease; K21.9 Gastro-esophageal reflux disease without esophagitis; Z99.2 Dependence on renal dialysis; Z79.899 Other long term (current) drug therapy

== ENCOUNTER 2017-04-28 17:28 | Emergency (ER) | payer MEDICARE, OTHER ==
--- NOTE | 2017-04-28 17:48 | ED.PDOC ---
History of Present Illness - General Chief Complaint: Respiratory Problem Stated Complaint: HAVING TROUBLE CATCHING HER BREATH Time Seen by Provider: 04/28/17 17:38 Source: patient Exam Limitations: no limitations - History of Present Illness Initial Comments: Penny Zamudio 71 y/o female resident of [facility] brought by ambulance with sob since this morning which she feels getting worse.She has history of ESRD on HD -- stating had dialysis yesterday here in [place]. Timing/Duration: 4-6 hours Severity: moderate Improving Factors: nothing Worsening Factors: nothing Associated Symptoms: other - see hpi Allergies/Adverse Reactions: Allergies Penicillins Allergy (Verified 02/10/17 23:16) Sulfa Antibiotics Allergy (Verified 02/10/17 23:16) Home Medications: Ambulatory Orders Cilostazol 50 mg PO BID 07/23/13 Diphenhydramine HCl [Benadryl] 25 mg PO PRN 07/23/13 Loperamide-Simethicone [Imodium Advanced 2-125 mg] 1 tab PO PRN 07/23/13 Sevelamer Carbonate [Renvela] 2,400 mg PO TID 07/23/13 Metoprolol Tartrate 100 mg PO BID 04/08/16 amLODIPine BESYLATE [Norvasc] 10 mg PO DAILY 04/08/16 Levemir Pen 02/03/17 Novolin R 02/03/17 Review of Systems - Review of Systems Constitutional: States: no symptoms reported EENTM: States: no symptoms reported Respiratory: States: see HPI Cardiology: States: see HPI Gastrointestinal/Abdominal: States: no symptoms reported Genitourinary: States: see HPI Neurological: States: no symptoms reported Endocrine: States: no symptoms reported All other Systems: Reviewed and Negative, No Change from Baseline Past Medical History (General) - Patient Medical History Hx Stroke: No Hx Cardiac Disorders: Yes Hx Congestive Heart Failure: No Hx Hypertension: Yes Hx Diabetes: Yes Hx Gastroesophageal Reflux: Yes Hx Renal Disease: Yes - ESRD Hx Cancer: No Hx Hepatitis C: No Hx MRSA: No Surgical History: cholecystectomy, tonsillectomy, other - hysterectomy;a-v fistula placement - Vaccination History Hx Tetanus, Diphtheria Vaccination: No Hx Influenza Vaccination: Yes Hx Pneumococcal Vaccination: Yes - Social History Hx Tobacco Use: No Hx Chewing Tobacco Use: No Hx Alcohol Use: No Hx Substance Use: No Hx Substance Use Treatment: No Hx Depression: No Hx Physical Abuse: No Hx Emotional Abuse: No Hx Suspected Abuse: No - Female History Patient : No Family Medical History - Family History Father Living Status: Hx Cardiac Disease: Yes Hx Family Diabetes: Yes Physical Exam - Physical Exam General Appearance: Alert, Anxious, No apparent distress Eye Exam: bilateral normal Ears, Nose, Throat: hearing grossly normal, normal ENT inspection, normal pharynx Neck: non-tender, supple Respiratory: chest non-tender, no respiratory distress, rales - bases, other - speaks in full sentences Cardiovascular/Chest: tachycardia - heart rate 110, systolic murmur, irregularly irregular Peripheral Pulses: radial,right: 1+, radial,left: 1+ Gastrointestinal/Abdominal: normal bowel sounds, non tender, soft, no organomegaly Back Exam: no vertebral tenderness Extremity: no pedal edema, no calf tenderness Neurologic: alert, oriented x 3 Skin Exam: normal color, warm/dry Progress - Progress Progress: 04/28/17 18:23 Last Vital Signs Temp 97.8 F 04/28/17 17:42 Pulse 88 04/28/17 17:42 Resp 16 04/28/17 17:53 BP 140/76 04/28/17 17:42 Pulse Ox 94 L 04/28/17 17:42 - Results/Orders Results/Orders: Laboratory Tests 04/28/17 18:10 WBC 6.4 RBC 3.27 L Hgb 9.8 L Hct 30.7 L MCV 93.8 MCH 29.9 MCHC 31.8 L RDW 22.9 H Plt Count 119 L MPV 10.7 H Absolute Neuts (auto) 5.20 Absolute Lymphs (auto) 0.50 L Absolute Monos (auto) 0.50 Absolute Eos (auto) 0.10 Absolute Basos (auto) 0.00 Neutrophils % 81.2 H Lymphocytes % 8.5 L Monocytes % 7.5 Eosinophils % 2.1 Basophils % 0.7 PT 14.5 H INR 1.290 PTT (SP) 30.1 Sodium 139 Potassium 3.9 Chloride 92 L Carbon Dioxide 32 H Anion Gap 18.9 H BUN 62 H Creatinine 5.32 H BUN/Creatinine Ratio 11.7 Random Glucose 258 H Serum Osmolality 304.0 H Calcium 8.0 L Magnesium 2.0 Creatine Kinase 26 CK-MB (CK-2) 1.4 CK-MB (CK-2) % Not Reportable Troponin I 0.02 B-Natriuretic Peptide > 5000.0 H* - EKG/XRAY/CT EKG: Atrial, Fibrillation, nonspecific ST T wave Chg - anterolateral leads Comments: heart rate-111; XRAY: chest - increasing vascular congestion Departure - Departure Clinical Impression: ESRD (end stage renal disease) on dialysis, Noncardiac pulmonary edema, History of chronic atrial fibrillation, Bilateral pleural effusion Condition: Fair Departure Forms: ED Discharge - Pt. Copy, Patient Portal Self Enrollment Referrals: DAVID EVANS [Primary Care Provider] - 1-2 Weeks Home Medications: Ambulatory Orders Cilostazol 50 mg PO BID 07/23/13 Diphenhydramine HCl [Benadryl] 25 mg PO PRN 07/23/13 Loperamide-Simethicone [Imodium Advanced 2-125 mg] 1 tab PO PRN 07/23/13 Sevelamer Carbonate [Renvela] 2,400 mg PO TID 07/23/13 Metoprolol Tartrate 100 mg PO BID 04/08/16 amLODIPine BESYLATE [Norvasc] 10 mg PO DAILY 04/08/16 Levemir Pen 02/03/17 Novolin R 02/03/17 Transfer to Outside Facility - Transfer Information Accepting Provider:: D/W Dr. Feliz-casing trimmer;Dr. Ballesteros-[facility] Reason for Transfer: required specialist not available
--- NOTE | 2017-04-28 18:29 | RAD ---
EXAM: Chest,1 View CLINICAL INDICATION: 71-year-old female with shortness of breath. TECHNIQUE: Single view, AP portable chest was obtained. COMPARISON: Single view chest 04/03/2017. FINDINGS: Stable prominent cardiac and mediastinal silhouette. Heart size is enlarged. Tortuous atherosclerotic thoracic aorta. Diffuse interstitial and airspace opacification with central pulmonary vascular and interstitial prominence suggesting pulmonary vascular congestion and edema with bilateral pleural effusion with or without atelectasis or consolidation slightly worsened in comparison to the previous examination dated 04/03/2017. No gross pneumothoraces. The visualized bones are within normal limits. IMPRESSION: Interval worsening of aeration as detailed above concerning for pulmonary vascular congestion and edema with bilateral pleural effusion. Please correlate with patient clinical findings and follow-up for resolution. Electronically signed by: Tamara Montiel MD 04/28/2017 6:28 PM PHOTO TECH
[2017-04-28 21:51] VITALS: O2SAT 100
[2017-04-28 21:55] VITALS: TEMP 97.9
[2017-04-28 22:03] VITALS: BP 129/75
== END 2017-04-28 21:55 | disposition home or self-care (01) ==
LOC: ER 17:28 → MS 18:04 → UNDOADMOB 18:04 → ER 21:55
DX: I12.0 Hypertensive chronic kidney disease with stage 5 chronic kidney disease or end stage renal disease (principal); E11.22 Type 2 diabetes mellitus with diabetic chronic kidney disease; N18.6 End stage renal disease; Z99.2 Dependence on renal dialysis; J81.1 Chronic pulmonary edema; J90 Pleural effusion, not elsewhere classified; I48.2 Chronic atrial fibrillation

== ENCOUNTER 2017-05-19 19:23 | Emergency (ER) | payer MEDICARE, OTHER ==
--- NOTE | 2017-05-19 20:08 | ED.PDOC ---
History of Present Illness - General Chief Complaint: Respiratory Problem Stated Complaint: short of breath Time Seen by Provider: 05/19/17 20:05 Source: patient Exam Limitations: no limitations - History of Present Illness Initial Comments: Penny Zamudio 71 y/o female with ESRD on hemodialysis brought by ems with sob which started early this afternoon gradually got worse no chest pains.Had same symptoms in the past and went to [facility] had been dialyzed got better.Had Spo2 80% RA on arrival but was given 2L O2 went up to 93%-94%. Timing/Duration: 4-6 hours Severity: moderate Improving Factors: cold therapy Worsening Factors: other - see hpi Associated Symptoms: other - see hpi Allergies/Adverse Reactions: Allergies Penicillins Allergy (Verified 05/19/17 19:48) Sulfa Antibiotics Allergy (Verified 05/19/17 19:48) Home Medications: Ambulatory Orders Cilostazol 50 mg PO BID 07/23/13 Diphenhydramine HCl [Benadryl] 25 mg PO PRN 07/23/13 Loperamide-Simethicone [Imodium Advanced 2-125 mg] 1 tab PO PRN 07/23/13 Sevelamer Carbonate [Renvela] 2,400 mg PO TID 07/23/13 Metoprolol Tartrate 100 mg PO BID 04/08/16 amLODIPine BESYLATE [Norvasc] 10 mg PO DAILY 04/08/16 Levemir Pen 02/03/17 Novolin R 02/03/17 Review of Systems - Review of Systems Constitutional: States: no symptoms reported EENTM: States: no symptoms reported Respiratory: States: see HPI Cardiology: States: no symptoms reported Gastrointestinal/Abdominal: States: no symptoms reported Genitourinary: States: other - ESRD-see hpi Skin: States: no symptoms reported Neurological: States: no symptoms reported Past Medical History (General) - Patient Medical History Hx Seizures: No Hx Stroke: No Hx Dementia: Yes Hx Asthma: No Hx of COPD: Yes Hx Cardiac Disorders: Yes Hx Congestive Heart Failure: Yes Hx Pacemaker: No Hx Hypertension: Yes Hx Thyroid Disease: No Hx Diabetes: Yes Hx Gastroesophageal Reflux: Yes Hx Renal Disease: Yes - ESRD Hx Cancer: No Hx of HIV: No Hx Hepatitis C: No Hx MRSA: No Surgical History: noncontributory - Vaccination History Hx Tetanus, Diphtheria Vaccination: No Hx Influenza Vaccination: Yes Hx Pneumococcal Vaccination: Yes - Social History Hx Tobacco Use: No Hx Chewing Tobacco Use: No Hx Alcohol Use: No Hx Substance Use: No Hx Substance Use Treatment: No Hx Depression: No Hx Physical Abuse: No Hx Emotional Abuse: No Hx Suspected Abuse: No - Activities of Daily Living Longterm/Assisted Living (if applicable):: [facility] Grooming Ability: Minimum Assistance Eating (Feeding) Ability: Minimum Assistance Toileting Ability: Minimum Assistance - Female History Patient : No Family Medical History - Family History Father Living Status: Hx Cardiac Disease: Yes Hx Family Diabetes: Yes Physical Exam - Physical Exam General Appearance: Alert, No apparent distress Eye Exam: bilateral other - decrease vision both eyes Ears, Nose, Throat: hearing grossly normal, normal ENT inspection Neck: non-tender, full range of motion, supple Respiratory: chest non-tender, no respiratory distress, no accessory muscle use , rales - bases Cardiovascular/Chest: normal peripheral pulses, regular rate, rhythm, no murmur Peripheral Pulses: radial,right: 2+, radial,left: 2+ Gastrointestinal/Abdominal: normal bowel sounds, non tender, soft Back Exam: no vertebral tenderness, CVA tenderness (R) Extremity: no pedal edema, no calf tenderness Neurologic: alert Skin Exam: normal color, warm/dry Progress - Progress Progress: 05/19/17 21:26 Last Vital Signs Temp 97.9 F 05/19/17 19:25 Pulse 94 H 05/19/17 20:58 Resp 20 05/19/17 20:58 BP 135/68 05/19/17 20:58 Pulse Ox 96 05/19/17 20:58 05/19/17 22:24 Patient desaturates when talking;D/W Dr. Small -electrical transmission engineer collections director for transfer to [facility] - Results/Orders Results/Orders: Laboratory Tests 05/19/17 05/19/17 20:15 20:15 WBC 5.1 RBC 3.48 L Hgb 10.8 L Hct 34.0 L MCV 97.7 MCH 31.0 MCHC 31.7 L RDW 22.6 H Plt Count 98 L MPV 10.2 Absolute Neuts (auto) 4.00 Absolute Lymphs (auto) 0.50 L Absolute Monos (auto) 0.40 Absolute Eos (auto) 0.10 Absolute Basos (auto) 0.00 Neutrophils % 78.9 H Lymphocytes % 9.7 L Monocytes % 8.4 Eosinophils % 2.2 Basophils % 0.8 Sodium 142 Potassium 5.0 Chloride 96 L Carbon Dioxide 30 Anion Gap 21.0 H BUN 74 H Creatinine 5.86 H BUN/Creatinine Ratio 12.6 Random Glucose 248 H Serum Osmolality 313.3 H Calcium 7.6 L Total Bilirubin 0.6 AST 57 H ALT 61 H Alkaline Phosphatase 144 H Serum Total Protein 7.6 Albumin 3.7 Globulin 3.9 H Albumin/Globulin Ratio 0.9 L - EKG/XRAY/CT XRAY: chest - pulmonary edema with cardiomegaly Departure - Departure Clinical Impression: CKD (chronic kidney disease) stage V requiring chronic dialysis, Pulmonary edema with left heart failure Time of Disposition: 22:27 Disposition: Transfer to Hospital Condition: Fair Departure Forms: ED Discharge - Pt. Copy, Patient Portal Self Enrollment Referrals: DAVID EVANS [Primary Care Provider] - 1-2 Weeks Home Medications: Ambulatory Orders Cilostazol 50 mg PO BID 07/23/13 Diphenhydramine HCl [Benadryl] 25 mg PO PRN 07/23/13 Loperamide-Simethicone [Imodium Advanced 2-125 mg] 1 tab PO PRN 07/23/13 Sevelamer Carbonate [Renvela] 2,400 mg PO TID 07/23/13 Metoprolol Tartrate 100 mg PO BID 04/08/16 amLODIPine BESYLATE [Norvasc] 10 mg PO DAILY 04/08/16 Levemir Pen 02/03/17 Novolin R 02/03/17 Transfer to Outside Facility - Transfer Information Accepting Provider:: -collections director Accepting Facility: [facility] Reason for Transfer: needs urgent dialysis
--- NOTE | 2017-05-19 20:31 | RAD ---
Procedure: XR CHEST 1 VIEW Exam Date: 05/19/2017 8:06 PM ACADEMIC AFFAIRS SPECIALIST Ordering Provider: Juan Arora Clinical Indication: sob Comparison: April 28, 2017 Findings: There is prominence of bilateral perihilar interstitial markings. No pneumothorax. Bilateral small pleural effusions are present. Heart size is enlarged. Impression: Pulmonary edema/CHF. Cardiomegaly. Electronically signed by: Darleen Feliz MD 05/19/2017 8:30 PM ACADEMIC AFFAIRS SPECIALIST
[2017-05-19 22:32] VITALS: BP 145/79; TEMP 97; O2SAT 96
== END 2017-05-19 23:05 | disposition short-term general hospital (02) ==
LOC: ER 19:23
DX: I13.2 Hypertensive heart and chronic kidney disease with heart failure and with stage 5 chronic kidney disease, or end stage renal disease (principal); E11.22 Type 2 diabetes mellitus with diabetic chronic kidney disease; N18.6 End stage renal disease; I50.1 Left ventricular failure, unspecified; Z99.2 Dependence on renal dialysis; J44.9 Chronic obstructive pulmonary disease, unspecified; Z88.0 Allergy status to penicillin; Z88.2 Allergy status to sulfonamides

== ENCOUNTER 2017-09-25 06:15 | Emergency (ER) | payer MEDICARE, OTHER ==
[2017-09-25 06:32] VITALS: TEMP 95.6
--- NOTE | 2017-09-25 06:33 | ED.PDOC ---
History of Present Illness - General Chief Complaint: Lower Extremity Injury Stated Complaint: rt foot pain Time Seen by Provider: 09/25/17 06:28 Source: patient, EMS Exam Limitations: no limitations - History of Present Illness Initial Comments: Penny Zamudio 72 y/o female stated that she was walking at her kitchen then she slipped and fell this am twisting right foot with pain on weight bearing after incident but on ems arrival she was able to walk and sit.Has history of ESRD on HD;DM2,HTN Occurred: just prior to arrival Pain - Lower Extremity: moderate: Right Foot Method of Injury: fell, twisted Improving Factors: rest Worsening Factors: movement Allergies/Adverse Reactions: Allergies Penicillins Allergy (Verified 05/19/17 19:48) Sulfa Antibiotics Allergy (Verified 05/19/17 19:48) Home Medications: Ambulatory Orders Cilostazol 50 mg PO BID 07/23/13 Diphenhydramine HCl [Benadryl] 25 mg PO PRN 07/23/13 Loperamide-Simethicone [Imodium Advanced 2-125 mg] 1 tab PO PRN 07/23/13 Sevelamer Carbonate [Renvela] 2,400 mg PO TID 07/23/13 Metoprolol Tartrate 100 mg PO BID 04/08/16 amLODIPine BESYLATE [Norvasc] 10 mg PO DAILY 04/08/16 Levemir Pen 02/03/17 Novolin R 02/03/17 Review of Systems - Review of Systems Constitutional: States: no symptoms reported EENTM: States: no symptoms reported Respiratory: States: no symptoms reported Cardiology: States: no symptoms reported Musculoskeletal: States: see HPI All other Systems: Reviewed and Negative, No Change from Baseline Past Medical History (General) - Patient Medical History Hx Seizures: No Hx Stroke: No Hx Dementia: Yes Hx Asthma: No Hx of COPD: Yes Hx Cardiac Disorders: Yes Hx Congestive Heart Failure: Yes - uses home O2 at hs Hx Pacemaker: No Hx Hypertension: Yes Hx Thyroid Disease: No Hx Diabetes: Yes Hx Gastroesophageal Reflux: Yes Hx Renal Disease: Yes - ESRD Hx Cancer: No Hx of HIV: No Hx Hepatitis C: No Hx MRSA: No Surgical History: cholecystectomy, tonsillectomy, Hysterectomy - Vaccination History Hx Tetanus, Diphtheria Vaccination: No Hx Influenza Vaccination: Yes Hx Pneumococcal Vaccination: Yes Immunizations Up to Date: Yes - Social History Hx Tobacco Use: No Hx Chewing Tobacco Use: No Hx Alcohol Use: No Hx Substance Use: No Hx Substance Use Treatment: No Hx Depression: No Hx Physical Abuse: No Hx Emotional Abuse: No Hx Suspected Abuse: No - Female History Patient is a Female of Child Bearing Age (10 -59 yrs old): No Patient : No Family Medical History - Family History Father Living Status: Hx Cardiac Disease: Yes Hx Family Diabetes: Yes Physical Exam - Physical Exam General Appearance: Alert, Comfortable, No apparent distress Eyes, Ears, Nose, Throat: normal ENT inspection Neck: supple Cardiovascular/Respiratory: regular rate, rhythm, no M/R/G, rales - bases Gastrointestinal/Abdominal: non-tender Back: no vertebral tenderness Leg: non-tender Knee: non-tender Ankle: non-tender Foot: bone tenderness - right mid foot, limited ROM, soft tissue tenderness - right foot, other - chronic toe ulceration Progress - Progress Progress: 09/25/17 06:40 Vital Signs - 8 hr 09/25/17 09/25/17 06:24 06:34 Temperature 95.6 F L Pulse Rate [ 95 H Right] Respiratory 16 Rate Blood Pressure 145/73 [Right Arm] O2 Sat by Pulse 93 L Oximetry - EKG/XRAY/CT XRAY: right foot no fracture Departure - Departure Clinical Impression: Fall at home Qualifiers: Encounter type: initial encounter Qualified Code(s): W19.XXXA - Unspecified fall, initial encounter; Y92.099 - Unspecified place in other non-institutional residence as the place of occurrence of the external cause Sprain of right foot Qualifiers: Encounter type: initial encounter Qualified Code(s): S93.601A - Unspecified sprain of right foot, initial encounter Time of Disposition: 07:02 Disposition: Discharge to Home or Self Care Condition: Fair Departure Forms: ED Discharge - Pt. Copy, Patient Portal Self Enrollment Referrals: DAVID EVANS [Primary Care Provider] - 1-2 Weeks Home Medications: Ambulatory Orders Cilostazol 50 mg PO BID 07/23/13 Diphenhydramine HCl [Benadryl] 25 mg PO PRN 07/23/13 Loperamide-Simethicone [Imodium Advanced 2-125 mg] 1 tab PO PRN 07/23/13 Sevelamer Carbonate [Renvela] 2,400 mg PO TID 07/23/13 Metoprolol Tartrate 100 mg PO BID 04/08/16 amLODIPine BESYLATE [Norvasc] 10 mg PO DAILY 04/08/16 Levemir Pen 02/03/17 Novolin R 02/03/17 Additional Instructions: Elevate right foot 20 degrees at bedtime;May take Tylenol 500 mg 3 x a day for pain
--- NOTE | 2017-09-25 06:59 | RAD ---
3 VIEWS RIGHT FOOT RADIOGRAPHIC SERIES. INDICATIONS: Pain. COMPARISONS: No comparisons are currently available. FINDINGS: Vascular calcifications are typical for sequela diabetes mellitus. No fractures or dislocations. No radiopaque soft tissue foreign bodies or soft tissue gas. No lytic or blastic bone lesions. IMPRESSION: Sequela of diabetes mellitus without fracture, dislocation or osteomyelitis. No radiopaque foreign bodies or soft tissue gas. Electronically signed by: Caesar Chang MD 09/25/2017 6:57 AM CDT
[2017-09-25 07:18] VITALS: BP 140/83; O2SAT 93
== END 2017-09-25 07:15 | disposition home or self-care (01) ==
LOC: ER 06:15
DX: S93.601A Unspecified sprain of right foot, initial encounter (principal); E11.22 Type 2 diabetes mellitus with diabetic chronic kidney disease; I13.2 Hypertensive heart and chronic kidney disease with heart failure and with stage 5 chronic kidney disease, or end stage renal disease; I50.9 Heart failure, unspecified; N18.6 End stage renal disease; K21.9 Gastro-esophageal reflux disease without esophagitis; Z99.81 Dependence on supplemental oxygen; F03.90 Unspecified dementia, unspecified severity, without behavioral disturbance, psychotic disturbance, mood disturbance, and anxiety; Z79.4 Long term (current) use of insulin; W01.0XXA Fall on same level from slipping, tripping and stumbling without subsequent striking against object, initial encounter; Y92.000 Kitchen of unspecified non-institutional (private) residence as the place of occurrence of the external cause

== ENCOUNTER 2017-10-02 11:24 | Observation (INO) | payer MEDICARE, OTHER ==
--- NOTE | 2017-10-02 11:38 | ED.PDOC ---
History of Present Illness - General Chief Complaint: Abdominal Pain Stated Complaint: Abdominal discomfort Time Seen by Provider: 10/02/17 11:20 Information Source: patient Exam Limitations: no limitations - History of Present Illness Initial Comments: rogelio Zamudio 72 y/o female with ESRD on HD brought by ambulance with abdominal distention and discomfort and had hypotensive episode whle undergoing dialysis BP-70/40 so dialysis stopped and had one liter of PRBC.No nausea, vomiting,fever,but stated no BM for the last 3 days.Has dialysis on - Abdominal Pain Onset Location: generalized abdomen Pain Radiation: no radiation Quality: moderate, dull, waxing/waning Timing/Duration: 4-6 hours Improving Factors: nothing Worsening Factors: nothing Associated Symptoms: other - see hpi Review of Systems - Review of Systems Constitutional: States: no symptoms reported EENTM: States: no symptoms reported Respiratory: States: no symptoms reported Cardiology: States: no symptoms reported Gastrointestinal/Abdominal: States: see HPI Genitourinary: States: see HPI Skin: States: no symptoms reported Neurological: States: no symptoms reported All other Systems: Reviewed and Negative, No Change from Baseline Past Medical History (General) - Patient Medical History Hx Seizures: No Hx Stroke: No Hx Dementia: Yes Hx Asthma: No Hx of COPD: Yes Hx Cardiac Disorders: Yes Hx Congestive Heart Failure: Yes - uses home O2 at hs Hx Pacemaker: No Hx Hypertension: Yes Hx Thyroid Disease: No Hx Diabetes: Yes Hx Gastroesophageal Reflux: Yes Hx Renal Disease: Yes - ESRD Hx Cancer: No Hx of HIV: No Hx Hepatitis C: No Hx MRSA: No Hx Other PMH: Yes - PAD Surgical History: cholecystectomy, tonsillectomy, other - hysterectomy,AV- fistula access - Vaccination History Hx Tetanus, Diphtheria Vaccination: No Hx Influenza Vaccination: Yes Hx Pneumococcal Vaccination: Yes - Social History Hx Tobacco Use: No Hx Chewing Tobacco Use: No Hx Alcohol Use: No Hx Substance Use: No Hx Substance Use Treatment: No Hx Depression: No Hx Physical Abuse: No Hx Emotional Abuse: No Hx Suspected Abuse: No - Activities of Daily Living Patient Lives Alone: No Shelter/Assisted Living (if applicable):: [facility] Grooming Ability: Standby Assistance Eating (Feeding) Ability: Standby Assistance Toileting Ability: Minimum Assistance - Female History Patient : No Family Medical History - Family History Father Living Status: Hx Cardiac Disease: Yes Hx Family Diabetes: Yes Physical Exam - Physical Exam General Appearance: Alert, Comfortable, No apparent distress Eyes, Ears, Nose, Throat Exam: normal ENT inspection Neck: non-tender, supple Respiratory: chest non-tender, lungs clear, no respiratory distress, rales - bases Cardiovascular/Chest: normal peripheral pulses, regular rate, rhythm, diastolic murmur - g2/6 Peripheral Pulses: Weak - dorsalis pedis Gastrointestinal/Abdominal: soft, distended, tenderness - left side, other - decrease bowel sounds Back Exam: normal inspection, no CVA tenderness, no vertebral tenderness Extremity: no pedal edema, no calf tenderness, other - great toe chronic ulcer Neurologic: alert, oriented x 3 Skin Exam: normal color, warm/dry Progress - Progress Progress: 10/02/17 13:26 Vital Signs - 8 hr 10/02/17 10/02/17 10/02/17 11:24 12:22 12:59 Temperature 96.7 F L Pulse Rate [ 82 77 82 Left Radial] Respiratory 18 18 18 Rate Blood Pressure 129/77 120/60 99/62 [Right Arm] O2 Sat by Pulse 93 L 99 95 Oximetry - Results/Orders Results/Orders: Laboratory Results - last 24 hr 10/02/17 10/02/17 10/02/17 11:35 11:35 11:35 WBC 5.7 RBC 3.47 L Hgb 10.9 L Hct 33.5 L MCV 96.5 MCH 31.4 H MCHC 32.5 L RDW 19.7 H Plt Count 103 L MPV 10.5 H Absolute Neuts (auto) 4.70 Absolute Lymphs (auto) 0.60 L Absolute Monos (auto) 0.40 Absolute Eos (auto) 0.00 Absolute Basos (auto) 0.00 Neutrophils % 82.6 H Lymphocytes % 9.9 L Monocytes % 6.4 Eosinophils % 0.5 L Basophils % 0.6 PT 11.9 H INR 1.20 H PTT (SP) 25.0 Sodium 141 Potassium 3.4 L Chloride 97 L Carbon Dioxide 36 H Anion Gap 11.4 L BUN 15 Creatinine 1.89 H BUN/Creatinine Ratio 7.9 L Random Glucose 115 H Serum Osmolality 283.0 Lactic Acid 1.8 Calcium 8.9 Phosphorus 1.5 L* Magnesium 1.8 Total Bilirubin 1.1 H Direct Bilirubin 0.3 H Indirect Bilirubin 0.8 AST 24 ALT 15 Alkaline Phosphatase 128 H Creatine Kinase 26 CK-MB (CK-2) 1.9 CK-MB (CK-2) % Not Reportable Troponin I 0.04 Serum Total Protein 7.4 Albumin 3.4 Lipase 21 L - EKG/XRAY/CT XRAY: chest - moderate right pleural effusion increased pulmonary vascularity CT Ordered: Yes - large pleural effusion right,fatty liver ,mesenteric edema bilateral renal Departure - Departure Clinical Impression: Abdominal distention, non-gaseous, Constipation by delayed colonic transit, CKD (chronic kidney disease) stage V requiring chronic dialysis Diabetes Qualifiers: Diabetes mellitus type: type 2 Diabetes mellitus complication status: with kidney complications Diabetes mellitus complication detail: with chronic kidney disease Diabetes mellitus terminal carman insulin use: unspecified terminal carman insulin use status Chronic kidney disease stage: on chronic dialysis Qualified Code(s): E11.22 - Type 2 diabetes mellitus with diabetic chronic kidney disease Time of Disposition: 14:13 Disposition: Admit Patient Condition: Poor Departure Forms: Patient Portal Self Enrollment Referrals: DAVID EVANS [Referring] - 1-2 Weeks Home Medications: Ambulatory Orders Cilostazol 50 mg PO BID 07/23/13 Diphenhydramine HCl [Benadryl] 25 mg PO PRN 07/23/13 Loperamide-Simethicone [Imodium Advanced 2-125 mg] 1 tab PO PRN 07/23/13 Sevelamer Carbonate [Renvela] 2,400 mg PO TID 07/23/13 Metoprolol Tartrate 100 mg PO BID 04/08/16 amLODIPine BESYLATE [Norvasc] 10 mg PO DAILY 04/08/16 Levemir Pen 02/03/17 Novolin R 02/03/17 Decision To Admit - Decistion To Admit Decision to Admit Reason: Admit from ER Decision to Admit Date: 10/02/17 - D/W Fabrizio Decision to Admit Time: 14:08
--- NOTE | 2017-10-02 12:28 | CT ---
EXAM DESCRIPTION: Abdomen/Pelvis w/o Contrast: Computed Tomography. CLINICAL HISTORY: abdominal distention COMPARISON: CT abdomen 02/09/2016. TECHNIQUE: Spiral-axial scans 5.0 mm intervals through the abdomen and pelvis without oral or IV contrast. Coronal and sagittal 2.0 mm reconstructions. Total Exam DLP: 658.69 mGy-cm. This exam was performed according to our departmental CT dose-optimization program which includes automated exposure control, adjustment of the mA and/or kV according to patient size and/or use of iterative reconstruction technique; to reduce radiation dose to as low as reasonably achievable (ALARA). FINDINGS: Lung bases and pleura: Large right pleural effusion with compressive atelectasis right lower lobe. Minimal effusion and pleural thickening in the left base with minimal atelectasis. Mosaic density in the included lung yang. Liver, stomach, spleen, and adrenal glands: Fatty density of the liver. Long axis right lobe is 19.6 cm. Diffuse atherosclerotic calcification of the celiac axis and main branches to the liver spleen and stomach and pancreas and also calcifications in the SMA and proximal bilateral renal arteries and intrarenal branches. Calcifications in the spleen. Stomach unremarkable. Ascites in the marbella hepatis. Gallbladder not well seen. Pancreas, Gallbladder, and Ducts: Fatty infiltration of the pancreas with no evidence of mass. Common bile duct not distended. Minimal fatty stranding around the pancreas. Kidneys and Ureters: Diffuse arterial calcifications as previously described with bilateral cortical thinning symmetric perinephric stranding with no hydronephrosis. Mesentery: Stranding in the pelvis and diffuse fascial thickening in the abdomen. Minimal ascites. No free intraperitoneal air. Aorta: Diffuse atherosclerotic calcifications with narrowing of the distal lumen and calcifications extending into the common internal and external iliacs femoral arteries and femoral artery bifurcations. No para-aortic mass with minimal lymph nodes. Small Bowel: Minimal small bowel wall intermittent thickening with no significant air-fluid levels or obstruction. Terminal Ileum/Cecum: Paracolic stranding normal caliber of these structures. Appendix is not seen. Colon: Diffuse fecal material but not distended. Moderate redundancy of the sigmoid colon. Diverticula but no definite calcifications. Would be difficult to exclude mild diverticulitis due to amount of edema and fluid in the lower abdomen and pelvis. Pelvic Organs: Urinary bladder is decompressed. Minimal fluid in the cul-de-sac. Vaginal cuff unremarkable. Uterus and ovaries not seen. Spine and Bony Pelvis: Spondylosis in the lower thoracic spine and degenerative disc disease in the lumbar spine. Abdominal Wall/Back Soft Tissues: Minimal edema in the subcutaneous adipose tissue of the abdomen and pelvis. IMPRESSION: 1. Large right pleural effusion with compression atelectasis right lower lobe. Minimal left pleural effusion and minimal left lower lobe atelectasis. 2. Fatty infiltration of the liver and enlargement with ascites. Fluid also in the marbella hepatis. 3. Diffuse severe atherosclerotic calcification involving the abdominal aorta and major branch vessels and even second and third order arteries in the liver, stomach, spleen, mesentery, and kidneys. No definite signs of bowel ischemia, but there is intermittent small bowel wall thickening distal jejunum which could represent enteritis. 4. Diffuse mesenteric edema fascial thickening and minimal fluid in the pelvis. Diverticulosis in the sigmoid colon which is minimally redundant. Cannot totally exclude diverticulitis. Correlate with clinical findings. 5. Bilateral renal cortical atrophy and diffuse intra-arterial calcifications indicating advanced atherosclerotic disease. Electronically signed by: Chapo Gentile MD 10/02/2017 12:26 PM CDT
--- NOTE | 2017-10-02 12:29 | RAD ---
EXAM DESCRIPTION: Chest,1 View CLINICAL HISTORY: abdominal distention COMPARISON: Portable chest 05/19/2017. TECHNIQUE: AP portable taken at 1157 hours, upright position. FINDINGS: Moderate right pleural effusion. Minimal left pleural effusion. Atelectasis versus infiltrate in the right lung base. Mild cardiomegaly. Pulmonary vascularity increased. Possible congestive heart failure. IMPRESSION: Moderate right pleural effusion and mild left pleural effusion. Bibasilar atelectasis. Congestive heart failure and pulmonary edema. Similar appearance on the prior study except for pleural effusion not present on the prior study. Electronically signed by: Chapo Gentile MD 10/02/2017 12:28 PM CDT
--- NOTE | 2017-10-02 15:27 | HP ---
SUPERVISING PHYSICIAN: Devin Griggs M.D. CHIEF COMPLAINT: Abdominal pain. HISTORY OF PRESENT ILLNESS: This is a 72 year-old female with a history of end stage renal disease who was brought by ambulance to the Emergency Room due to her blood pressure dropping and dialysis. Apparently it had gone to about 70/ 40. At that point, she was given some fluids and some blood. Her blood pressure improved. She also complained of abdominal distention and no bowel movement for the past 3 days. She had labs that were done in the Emergency Room and INR was 1.2, H&H was 10.9 and 33.5, platelet count 103. White blood cell count was 5.7. There is no sign of infection. She did have elevated creatinine but she does have end stage renal disease as well. Bilirubin was mildly elevated at 1.1. Once again, she states she has not had a bowel movement for the last 3 days. Therefore she was referred for observation. At time of examination the patient is alert and oriented with no distress. She does complain of a little bit of abdominal discomfort with palpation. PAST MEDICAL HISTORY: 1. Diabetes mellitus type 2 requiring insulin. 2. Cerebrovascular accident. She states that she has had 4 light strokes and documentation shows she has had 2 CVAs in the past. 3. Coronary artery disease with history of myocardial infarction. 4. Hypertension. 5. Peripheral neuropathy. 6. End stage renal disease on dialysis. PAST SURGICAL HISTORY: 1. Cholecystectomy. 2. Tonsillectomy. 3. Hysterectomy. 4. AV fistula placement. CURRENT MEDICATIONS: 1. Alprazolam 0.25 mg p.o. b.i.d. 2. Amlodipine 10 mg p.o. daily. 3. Calcium 667 p.o. t.i.d. 4. Cilostazol 50 mg p.o. b.i.d. 5. Diphenhydramine 25 mg p.o. every 8 hours p.r.n. 6. Aricept 5 mg p.o. daily. 7. Insulin per sliding scale. 8. Lantus 42 units subcutaneously at bedtime. 9. Isosorbide 30 mg p.o. daily. 10. Melatonin 10 mg p.o. at bedtime. 11. Metoprolol 100 mg p.o. b.i.d. 12. MiraLAX 17 grams p.o. daily. 13. Carafate 1 gram p.o. b.i.d. ALLERGIES: SULFA AND PENICILLIN. FAMILY HISTORY: Diabetes, strokes, coronary artery disease, cancer and dementia. SOCIAL HISTORY: She does not smoke or drink alcohol. No illicit drugs. REVIEW OF SYSTEMS: CONSTITUTIONAL: No fever or chills. No recent weight loss or weight gain. HEENT: No headache, vision changes, ear pain, nasal congestion or throat pain. LUNG: No cough, hemoptysis or pleuritic chest pain. CARDIOVASCULAR: No chest pain, palpitations or peripheral edema. GASTROINTESTINAL: Positive for some nausea. She has had some constipation as well. GENITOURINARY: No dysuria, frequency or flank pain. MUSCULOSKELETAL: No joint pain, joint swelling or muscle cramps. NEUROLOGIC: No headaches, paresthesias or syncope. HEMATOLOGIC: Positive for easy bruising but no transfusion reaction. ENDOCRINE: No polydipsia, polyuria or polyphagia. No heat or cold intolerance. PHYSICAL EXAMINATION: VITAL SIGNS: Blood pressure 119/63, heart rate 83, respiratory rate 18, temperature 96.7, oxygen saturation 97%. GENERAL: Ms. Zamudio is a 72 year-old female in no active distress currently. HEENT: Head is normocephalic and atraumatic. EYES: Pupils are equal and reactive. NOSE: No drainage. THROAT: Moist mucosa. NECK: Supple. Midline trachea. No jugular venous distention. CHEST: Symmetrical with equal rise and fall of the chest with inspiration and expiration. Lung sounds are clear to auscultation bilaterally. CARDIOVASCULAR: Regular rate and rhythm. Normal S1 and S2. There is a systolic murmur 3/6. ABDOMEN: Soft. Positive bowel sounds. She does have some diffuse tenderness to palpation but it is very mild. EXTREMITIES: Lower extremities with a wound to the right great toe. This is being addressed in [facility]. Pulses are 1+. NEUROLOGIC: The patient is alert and oriented and moves all extremities. Extraocular movements are intact. RADIOLOGY: She had a CT of the abdomen and pelvis. CT shows a large right pleural effusion with compression atelectasis in the right lower lobe, minimal left pleural effusion. Fatty infiltrates of the liver and she has some ascites as well. She has no signs of bowel ischemia but some areas in the small bowel which could represent enteritis. She has diffuse mesenteric edema, diverticulosis of the sigmoid colon. Cannot totally exclude diverticulitis. LABORATORY: As discussed in the History of Present Illness. ASSESSMENT: 1. Transient hypotension. 2. Abdominal pain with abdominal distention likely secondary to constipation. 3. Large right pleural effusion. 4. Possible enteritis. 5. End stage renal disease on hemodialysis. 6. Anemia and thrombocytopenia. PLAN: 1. At this point, her blood pressure is improved but not really high enough to restart her home antihypertensives. Will continue to monitor and restart home medications when her blood pressure elevates. 2. Abdominal pain is likely secondary to her constipation, however cannot rule out enteritis. In fact, CT scan states could have some diverticulitis. However, she has a normal white count and does not present like she is in an infectious state. Will not place on antibiotics at this time and continue to monitor. I am going to give her something for her constipation. 3. She does not appear to be greatly affected by her pleural effusion. I am going to go ahead and start her on DVT prophylaxis with Lovenox. I would prefer that she resume her dialysis on Saturday if she remains stable. She can likely go home tomorrow if her blood pressure remains and she has good production from the Mag citrate that I am giving her. 4. Regarding her anemia and thrombocytopenia, I will continue to monitor this. This is likely secondary to her end stage renal disease. If she has significant drops, will have to address at that time. #[id number] [facility]
[2017-10-02] MEDS ORDERED: SODIUM CHLORIDE 0.9% (FLUSH) 10 ML SYG IV PRN (17:04)
[2017-10-02] MEDS ORDERED: MAGNESIUM CITRATE 300 ML BTTL PO ONE (17:06)
[2017-10-02] MEDS ORDERED: IV SET AND CAP CHANGE INJ INJ SCH (17:30)
[2017-10-02] MEDS ORDERED: ENOXAPARIN SODIUM 30 MG/0.3 ML SYG SUBCU SCH (18:30)
[2017-10-03] MEDS ORDERED: ASPIRIN (ENTERIC COATED) 325 MG TAB PO PRN (01:29)
[2017-10-03 07:38] VITALS: O2SAT 97
[2017-10-03 10:30] VITALS: BP 128/67; TEMP 97.6
--- NOTE | 2017-10-03 11:55 | DS ---
SUPERVISING PHYSICIAN: Devin Griggs MD ADMISSION DIAGNOSIS: 1. Transient hypotension. 2. Abdominal pain with abdominal distention secondary to constipation. 3. Large right pleural effusion. 4. Possible enteritis. 5. End-stage renal disease on hemodialysis. 6. Anemia and thrombocytopenia. DISCHARGE DIAGNOSIS: 1. Transient hypotension, resolved. 2. Abdominal pain with abdominal distention secondary to constipation, improved. 3. Large right pleural effusion. 4. Possible enteritis. 5. End-stage renal disease on hemodialysis. 6. Anemia and thrombocytopenia. HISTORY OF PRESENT ILLNESS: This is a 72-year-old female with a history of end stage renal disease who was brought by ambulance to the Emergency Room due to her blood pressure dropping and dialysis. Apparently it had gone to about 70/ 40. At that point, she was given some fluids and some blood. Her blood pressure improved. She also complained of abdominal distention and no bowel movement for the past 3 days. She had labs that were done in the Emergency Room and INR was 1.2, H&H was 10.9 and 33.5, platelet count 103. White blood cell count was 5.7. There is no sign of infection. She did have elevated creatinine but she does have end stage renal disease as well. Bilirubin was mildly elevated at 1.1. Once again, she states she has not had a bowel movement for the last 3 days. Therefore she was referred for observation. At time of examination the patient is alert and oriented with no distress. She does complain of a little bit of abdominal discomfort with palpation. HOSPITAL COURSE: Overnight, there were no complications. Blood pressure remained in acceptable range. Repeat labs showed elevation in creatinine which would be normal for her as she had end-stage renal disease on dialysis. Hemoglobin stayed stable and there was no elevation in white count. She did have results with the mag citrate and she states she had 4 bowel movements. There is no further abdominal pain. Therefore, she will be discharged in stable condition today for followup with her primary care physician as well as Dr. Feliz. I have instructed her that we are adjusting her blood pressure medications and instructed the nurse to call the home health agency with the following instructions. She is to remain on the metoprolol, but I am discontinuing the Norvasc. Also, hold blood pressure medications the morning of her dialysis to ensure she does not have hypotensive episodes. If she continues to have hypotensive episodes, then it is possible she will need a further reduction in her blood pressure medications. No change in home diet. Activities as tolerated. #[id number] [facility]
[2017-10-03] MEDS ORDERED: ENOXAPARIN SODIUM 30 MG/0.3 ML SYG SUBCU SCH (21:00)
== END 2017-10-03 14:38 | disposition home health service (06) ==
LOC: ER 11:24 → INTOOBSV 15:26 → MS 15:26
PROVIDERS: ADMIT Nurse Practitioner; ATTEND Nurse Practitioner
DX: I95.89 Other hypotension (principal); K59.01 Slow transit constipation; J90 Pleural effusion, not elsewhere classified; I13.2 Hypertensive heart and chronic kidney disease with heart failure and with stage 5 chronic kidney disease, or end stage renal disease; N18.6 End stage renal disease; Z99.2 Dependence on renal dialysis; E11.22 Type 2 diabetes mellitus with diabetic chronic kidney disease; D64.9 Anemia, unspecified; D69.6 Thrombocytopenia, unspecified; E11.42 Type 2 diabetes mellitus with diabetic polyneuropathy; I50.9 Heart failure, unspecified; K57.30 Diverticulosis of large intestine without perforation or abscess without bleeding; I25.10 Atherosclerotic heart disease of native coronary artery without angina pectoris; I25.2 Old myocardial infarction; J44.9 Chronic obstructive pulmonary disease, unspecified; K76.0 Fatty (change of) liver, not elsewhere classified; R18.8 Other ascites; I70.0 Atherosclerosis of aorta; J98.11 Atelectasis; Z99.81 Dependence on supplemental oxygen; Z79.4 Long term (current) use of insulin; Z79.899 Other long term (current) drug therapy; Z88.0 Allergy status to penicillin; Z88.2 Allergy status to sulfonamides; Z86.73 Personal history of transient ischemic attack (TIA), and cerebral infarction without residual deficits
CPT/HCPCS: 96372; J1650; 80048 ×2; 36415 ×2; 82550; 82553; 85025 ×2; 85730; 85610; 84484; 80076; 83690; 84100; 83605; 71045; 74176; 94760; 99285; G0378

== ENCOUNTER 2017-10-10 16:12 | Emergency (ER) | payer MEDICARE, OTHER ==
[2017-10-10 16:27] VITALS: TEMP 96.8
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
--- NOTE | 2017-10-10 17:11 | RAD ---
EXAM DESCRIPTION: Chest,1 View CLINICAL HISTORY: Shortness of breath. History pleural effusion. Pneumonia. COMPARISON: Chest radiograph dated October 02, 2017 FINDINGS: Single upright portable frontal view of the chest. Cardiac silhouette shows cardiomegaly with central pulmonary vascular congestion and interstitial edema. Opacities in the bilateral lower lung zones, right greater than left, may represent early pulmonary edema and/or compressive atelectasis. Underlying infiltrate cannot be entirely excluded. Blunting of the right costophrenic angle compatible with small to moderate right-sided pleural effusion. Suspect trace left-sided pleural effusion. No pneumothorax. IMPRESSION: 1. Cardiomegaly with central pulmonary vessel congestion and interstitial edema, compatible with congestive heart failure. 2. Opacities in the bilateral lower lung zones, right greater than left, may represent early pulmonary edema and/or compressive atelectasis. Underlying infiltrate cannot be entirely excluded. 3. Small to moderate left-sided pleural effusion. Suspect trace left-sided pleural effusion. Electronically signed by: Mor Long MD 10/10/2017 5:09 PM CDT
--- NOTE | 2017-10-10 17:12 | CT ---
EXAM DESCRIPTION: Head CLINICAL HISTORY: HEAD TRAUMA COMPARISON: None available TECHNIQUE: Noncontrast head CT was performed with routine protocol. FINDINGS: Normal zimmer-white matter differentiation. Ventricles and sulci are prominent consistent with age-related cerebral volume loss. Low density white matter is consistent with chronic microvascular ischemic changes. Low density in the left parietal lobe is consistent with an old infarction predominantly involving the white matter. No sulcal effacement to suggest an acute infarction or other cause of focal edema. Old lacunar infarcts in the anterior limb right internal capsule and the left caudate nucleus are noted. These findings are usually seen with essential hypertension. There is calcification of intracranial internal carotid arteries. No high density hemorrhage, focal edema or shift of the midline. No sulcal effacement. Normal orbital contents. Basilar cisterns appear clear. Intact calvarium with no fracture or lytic lesion. Normal aeration of tympanic cavities and mastoid air cells. No fluid levels in the paranasal sinuses. Skull base appears intact. Symmetrical internal auditory canals. IMPRESSION: No acute intracranial pathologic process. This exam was performed according to our departmental dose-optimization program, which includes automated exposure control, adjustment of the mA and/or kV according to patient size and/or use of iterative reconstruction technique. Total DLP equals 859.97 mGycm. Electronically signed by: Thai De Leon MD 10/10/2017 5:11 PM CDT
[2017-10-10 17:46] VITALS: BP 133/64; O2SAT 95
== END 2017-10-10 17:51 | disposition home or self-care (01) ==
LOC: ER 16:12
DX: J90 Pleural effusion, not elsewhere classified (principal); E11.22 Type 2 diabetes mellitus with diabetic chronic kidney disease; I12.0 Hypertensive chronic kidney disease with stage 5 chronic kidney disease or end stage renal disease; N18.6 End stage renal disease; J44.9 Chronic obstructive pulmonary disease, unspecified; F03.90 Unspecified dementia, unspecified severity, without behavioral disturbance, psychotic disturbance, mood disturbance, and anxiety; K21.9 Gastro-esophageal reflux disease without esophagitis; Z99.2 Dependence on renal dialysis; Z86.73 Personal history of transient ischemic attack (TIA), and cerebral infarction without residual deficits; Z79.82 Long term (current) use of aspirin; Z79.4 Long term (current) use of insulin

== ENCOUNTER 2017-10-19 21:41 | Emergency (ER) | payer MEDICARE, OTHER ==
[2017-10-19 22:02] VITALS: TEMP 98.4
--- NOTE | 2017-10-19 22:45 | RAD ---
EXAM DESCRIPTION: Chest,1 View CLINICAL HISTORY: 72 years Female, dyspnea COMPARISON: AP chest October 10, 2017 FINDINGS: Opacities in both lower lung zones are again appreciated appear mildly increased on the right. Small to moderate right and small left pleural effusions again demonstrated appearing unchanged. No pneumothorax. Cardiac silhouette appears enlarged but unchanged. Osseous structures are unchanged. IMPRESSION: 1. Bibasilar pulmonary opacities suggestive of atelectasis versus infiltrates appear mildly increased on the right. 2. Small to moderate right and small left pleural effusions again demonstrated, relatively unchanged. Electronically signed by: Colton Gomez MD 10/19/2017 10:44 PM CDT
[2017-10-19 22:54] VITALS: BP 155/64; O2SAT 96
--- NOTE | 2017-10-19 23:27 | ED.PDOC ---
History of Present Illness - General Chief Complaint: Respiratory Problem Stated Complaint: shortness of breath Time Seen by Provider: 10/19/17 22:08 Source: patient, RN notes reviewed, Vital Signs reviewed, family Exam Limitations: other - hearing impairment - History of Present Illness Initial Comments: She got disconnected from her home O2, became dyspneic & called her son. She attributes the dyspnea to drinking more fluid than directed by her deli manager & this has happened many times before. Is dialyzed & Saturday's dialysis was normal. Timing/Duration: 1 hour Severity: moderate Activities at Onset: none Possible Cause: frequent episodes, chronic episodes Improving Factors: other - oxygen Worsening Factors: movement Associated Symptoms: anxiety, weakness Respiratory Risk Factors: other - see above Allergies/Adverse Reactions: Allergies Penicillins Allergy (Verified 10/19/17 22:02) Sulfa Antibiotics Allergy (Verified 10/19/17 22:02) Home Medications: Ambulatory Orders ALPRAZolam [Xanax] 0.25 mg PO BEDTIME PRN 10/02/17 Aspirin [Aspirin Adult Low Dose] 81 mg PO DAILY 10/02/17 Calcium Acetate (Phosphate Bin [Calcium Acetate] 3 tablet PO TIDFD 10/02/17 Cilostazol 50 mg PO BID 10/02/17 Cinacalcet HCl [Sensipar] 60 mg PO MOWEFR 10/02/17 Insulin Aspart [Novolog Flexpen] 0 unit SC ACHS MDD 50 units 10/02/17 Isosorbide Mononitrate [Isosorbide Mononitrate ER] 30 mg PO DAILY 10/02/17 Metoprolol Succinate [Metoprolol Succinate ER] 25 mg PO BID 10/02/17 Review of Systems - Review of Systems Constitutional: States: see HPI EENTM: States: no symptoms reported Respiratory: States: see HPI Cardiology: States: no symptoms reported, edema Gastrointestinal/Abdominal: States: no symptoms reported Musculoskeletal: States: no symptoms reported Skin: States: no symptoms reported Neurological: States: no symptoms reported Endocrine: States: see HPI. Denies: unexplained weight gain Past Medical History (General) - Patient Medical History Hx Seizures: No Hx Stroke: Yes Hx Dementia: Yes Hx Asthma: No Hx of COPD: Yes Hx Cardiac Disorders: Yes Hx Congestive Heart Failure: No Hx Pacemaker: No Hx Hypertension: Yes Hx Thyroid Disease: No Hx Diabetes: Yes Hx Gastroesophageal Reflux: Yes Hx Renal Disease: Yes - ESRD Hx Cancer: No Hx of HIV: No Hx Hepatitis C: No Hx MRSA: No Surgical History: cholecystectomy, tonsillectomy, Hysterectomy - Vaccination History Hx Tetanus, Diphtheria Vaccination: No Hx Influenza Vaccination: Yes Hx Pneumococcal Vaccination: Yes - Social History Hx Tobacco Use: No Hx Chewing Tobacco Use: No Hx Alcohol Use: No Hx Substance Use: No Hx Substance Use Treatment: No Hx Depression: No Hx Physical Abuse: No Hx Emotional Abuse: No Hx Suspected Abuse: No - Female History Patient : No Family Medical History - Family History Father Living Status: Hx Cardiac Disease: Yes Hx Family Diabetes: Yes Physical Exam - Physical Exam General Appearance: Alert, Comfortable, No apparent distress Neck: supple, normal inspection Respiratory: lungs clear, normal breath sounds Cardiovascular/Chest: JVD, other - pitting edema Gastrointestinal/Abdominal: non tender, soft, no organomegaly Rectal Exam: deferred Extremity: normal capillary refill, pedal edema Neurologic: alert, normal mood/affect Skin Exam: normal color, warm/dry Progress - Progress Progress: 10/19/17 23:25 Says she feels better, back to baseline, wants to go home. Family agrees. SaO2 97% on NC. They feel she got disconnected from her home O2 & got anxious. - Results/Orders Results/Orders: Cr 5 - EKG/XRAY/CT EKG: Atrial, Fibrillation, nonspecific ST T wave Chg Comments: HR 97; RVH; artifact; nml axis & QT XRAY: chest - small unchanged pleural effusions Departure - Departure Clinical Impression: ESRD (end stage renal disease), Anemia of renal disease Dyspnea Qualifiers: Dyspnea type: shortness of breath Qualified Code(s): R06.02 - Shortness of breath Fluid overload Qualifiers: Hypervolemia type: unspecified Qualified Code(s): E87.70 - Fluid overload, unspecified Atrial fibrillation Qualifiers: Atrial fibrillation type: chronic Qualified Code(s): I48.2 - Chronic atrial fibrillation Disposition: Discharge to Home or Self Care Condition: Fair Departure Forms: ED Discharge - Pt. Copy, Patient Portal Self Enrollment Instructions: DI for Hypoxia Referrals: SLIM ROCHA [Primary Care Provider] - 10/21/17 Home Medications: Ambulatory Orders ALPRAZolam [Xanax] 0.25 mg PO BEDTIME PRN 10/02/17 Aspirin [Aspirin Adult Low Dose] 81 mg PO DAILY 10/02/17 Calcium Acetate (Phosphate Bin [Calcium Acetate] 3 tablet PO TIDFD 10/02/17 Cilostazol 50 mg PO BID 10/02/17 Cinacalcet HCl [Sensipar] 60 mg PO MOWEFR 10/02/17 Insulin Aspart [Novolog Flexpen] 0 unit SC ACHS MDD 50 units 10/02/17 Isosorbide Mononitrate [Isosorbide Mononitrate ER] 30 mg PO DAILY 10/02/17 Metoprolol Succinate [Metoprolol Succinate ER] 25 mg PO BID 10/02/17 Comments: dialysis on Saturday
== END 2017-10-19 23:34 | disposition home or self-care (01) ==
LOC: ER 21:41
DX: E11.22 Type 2 diabetes mellitus with diabetic chronic kidney disease (principal); I12.0 Hypertensive chronic kidney disease with stage 5 chronic kidney disease or end stage renal disease; N18.6 End stage renal disease; D63.1 Anemia in chronic kidney disease; Z99.2 Dependence on renal dialysis; I48.2 Chronic atrial fibrillation; E87.70 Fluid overload, unspecified; R06.02 Shortness of breath; F03.90 Unspecified dementia, unspecified severity, without behavioral disturbance, psychotic disturbance, mood disturbance, and anxiety; Z79.4 Long term (current) use of insulin; Z99.81 Dependence on supplemental oxygen; Z88.0 Allergy status to penicillin; Z88.2 Allergy status to sulfonamides; Z86.73 Personal history of transient ischemic attack (TIA), and cerebral infarction without residual deficits

== ENCOUNTER 2017-10-22 00:41 | Emergency (ER) | payer MEDICARE, OTHER ==
[2017-10-22 01:13] VITALS: TEMP 97
--- NOTE | 2017-10-22 01:18 | ED.PDOC ---
History of Present Illness - General Chief Complaint: Respiratory Problem Stated Complaint: shortness of breath Time Seen by Provider: 10/22/17 01:04 Source: patient Exam Limitations: no limitations - History of Present Illness Initial Comments: the patient is a 72-year-old female presenting emergency room secondary to reported shortness of breath. She called EMS and was brought in by EMS. She was apparently not hypoxic upon arrival by EMS and in no distress then as well. She is drowsy here and has a hard time staying awake issues regarding taking sleeping pill. The patient sleeps soundly and in no distress and sats 100% on 3 L. Lungs are clear anteriorly. There is no increased work of breathing. There is no wheezing. Patient does have a long list of chronic medical problems including arrhythmia and chronic renal insufficiency for which she does dialysis. She did have dialysis today. She also has a history of noncompliance with her oxygen as well as anxiety attacks and attention seeking behavior. Timing/Duration: 1-3 hours Severity: mild Improving Factors: nothing Worsening Factors: nothing Associated Symptoms: malaise, shortness of breath Allergies/Adverse Reactions: Allergies Penicillins Allergy (Verified 10/19/17 22:02) Sulfa Antibiotics Allergy (Verified 10/19/17 22:02) Home Medications: Ambulatory Orders ALPRAZolam [Xanax] 0.25 mg PO BEDTIME PRN 10/02/17 Aspirin [Aspirin Adult Low Dose] 81 mg PO DAILY 10/02/17 Calcium Acetate (Phosphate Bin [Calcium Acetate] 3 tablet PO TIDFD 10/02/17 Cilostazol 50 mg PO BID 10/02/17 Cinacalcet HCl [Sensipar] 60 mg PO MOWEFR 10/02/17 Insulin Aspart [Novolog Flexpen] 0 unit SC ACHS MDD 50 units 10/02/17 Isosorbide Mononitrate [Isosorbide Mononitrate ER] 30 mg PO DAILY 10/02/17 Metoprolol Succinate [Metoprolol Succinate ER] 25 mg PO BID 10/02/17 Review of Systems - Review of Systems Constitutional: States: malaise EENTM: States: no symptoms reported Respiratory: States: short of breath Cardiology: States: no symptoms reported Gastrointestinal/Abdominal: States: no symptoms reported Genitourinary: States: no symptoms reported Musculoskeletal: States: no symptoms reported Skin: States: no symptoms reported Neurological: States: no symptoms reported Endocrine: States: no symptoms reported All other Systems: No Change from Baseline Past Medical History (General) - Patient Medical History Hx Seizures: No Hx Stroke: Yes Hx Dementia: Yes Hx Asthma: No Hx of COPD: Yes Hx Cardiac Disorders: Yes Hx Congestive Heart Failure: No Hx Pacemaker: No Hx Hypertension: Yes Hx Thyroid Disease: No Hx Diabetes: Yes Hx Gastroesophageal Reflux: Yes Hx Renal Disease: Yes - ESRD Hx Cancer: No Hx of HIV: No Hx Hepatitis C: No Hx MRSA: No - Vaccination History Hx Tetanus, Diphtheria Vaccination: No Hx Influenza Vaccination: Yes Hx Pneumococcal Vaccination: Yes Immunizations Up to Date: Yes - Social History Hx Tobacco Use: No Hx Chewing Tobacco Use: No Hx Alcohol Use: No Hx Substance Use: No Hx Substance Use Treatment: No Hx Depression: No Hx Physical Abuse: No Hx Emotional Abuse: No Hx Suspected Abuse: No - Female History Patient is a Female of Child Bearing Age (10 -59 yrs old): No Patient : No - Triage Comment ED Triage Comment: became short of breath tonight. Last dialysis Saturday. Family Medical History - Family History Father Living Status: Hx Cardiac Disease: Yes Hx Family Diabetes: Yes Physical Exam - Physical Exam General Appearance: Alert, Comfortable, Other - the patient is sleeping and resting comfortably upon my arrival Eye Exam: bilateral normal - pupils are 2-3 mm bilaterally Ears, Nose, Throat: hearing grossly normal, normal ENT inspection, normal pharynx Neck: full range of motion, supple Respiratory: lungs clear, normal breath sounds, no respiratory distress, no accessory muscle use Cardiovascular/Chest: normal peripheral pulses, other - regular rate Peripheral Pulses: radial,right: 2+, radial,left: 2+, dorsalis pedis,right: 2+, dorsalis pedis,left: 2+ Gastrointestinal/Abdominal: non tender, soft Rectal Exam: deferred Back Exam: no CVA tenderness, no vertebral tenderness Extremity: normal range of motion, non-tender, no calf tenderness, normal capillary refill, pedal edema - right lower extremity has +1 edema but no edema to left lower extremity Neurologic: web assistant II-XII nml as tested, oriented x 3, other - the patient is drowsy but easily arousable to voice Skin Exam: normal color Comments: Vital Signs - 24 hr 10/22/17 00:48 Temperature 97.0 F L Pulse Rate [ 88 Left] Respiratory 16 Rate Blood Pressure 106/63 [Right Arm] O2 Sat by Pulse 92 L Oximetry Progress - Progress Progress: 10/22/17 03:31 the patient is a 72-year-old female presenting to emergency room secondary to a feeling of mild shortness of breath. The patient has been resting comfortably since her arrival here. Lab work and chest x-ray failed to show any source for the mild shortness of breath over her baseline. The patient does appear to be a little bit too drowsy. She should consider reducing her evening sleep medication by half. It is possible she is knocking her oxygen off at times when she is sleeping and this would certainly lead to some hypoxia and shortness of breath. She needs to follow-up with her primary care doctor later this week. ER warnings were given. - Results/Orders Results/Orders: 10/22/17 01:13 Telemetry .CONTINUOUS Laboratory Results - last 24 hr 10/22/17 10/22/17 01:13 01:13 WBC 6.8 RBC 3.41 L Hgb 10.6 L Hct 32.8 L MCV 96.1 MCH 31.0 MCHC 32.3 L RDW 18.6 H Plt Count 109 L MPV 11.5 H Absolute Neuts (auto) 5.70 Absolute Lymphs (auto) 0.50 L Absolute Monos (auto) 0.50 Absolute Eos (auto) 0.10 Absolute Basos (auto) 0.10 Neutrophils % 83.4 H Lymphocytes % 7.8 L Monocytes % 7.0 Eosinophils % 0.9 L Basophils % 0.9 Sodium 140 Potassium 3.4 L Chloride 95 L Carbon Dioxide 33 H Anion Gap 15.4 BUN 32 H Creatinine 4.56 H BUN/Creatinine Ratio 7.0 L Random Glucose 225 H D Serum Osmolality 293.3 Calcium 10.0 Total Bilirubin 0.8 AST 18 ALT 11 Alkaline Phosphatase 123 H Creatine Kinase 35 CK-MB (CK-2) 1.5 CK-MB (CK-2) % Not Reportable Troponin I 0.04 B-Natriuretic Peptide > 5000.0 H* Serum Total Protein 6.8 Albumin 3.2 Globulin 3.6 H Albumin/Globulin Ratio 0.9 L chest x-ray showspersistent right-sided effusion that is a little smaller than at last check. No new significant infiltrate. Departure - Departure Clinical Impression: Dyspnea Qualifiers: Dyspnea type: shortness of breath Qualified Code(s): R06.02 - Shortness of breath; R06.00 - Dyspnea, unspecified; R06.01 - Orthopnea Disposition: Discharge to Home or Self Care Condition: Fair Departure Forms: ED Discharge - Pt. Copy, Patient Portal Self Enrollment Diet: diabetic diet Activity: increase activity as tolerated Referrals: SLIM ROCHA [Primary Care Provider] - 1-5 Days Home Medications: Ambulatory Orders ALPRAZolam [Xanax] 0.25 mg PO BEDTIME PRN 10/02/17 Aspirin [Aspirin Adult Low Dose] 81 mg PO DAILY 10/02/17 Calcium Acetate (Phosphate Bin [Calcium Acetate] 3 tablet PO TIDFD 10/02/17 Cilostazol 50 mg PO BID 10/02/17 Cinacalcet HCl [Sensipar] 60 mg PO MOWEFR 10/02/17 Insulin Aspart [Novolog Flexpen] 0 unit SC ACHS MDD 50 units 10/02/17 Isosorbide Mononitrate [Isosorbide Mononitrate ER] 30 mg PO DAILY 10/02/17 Metoprolol Succinate [Metoprolol Succinate ER] 25 mg PO BID 10/02/17 Additional Instructions: the patient is a 72-year-old female presenting to emergency room secondary to a feeling of mild shortness of breath. The patient has been resting comfortably since her arrival here. Lab work and chest x-ray failed to show any source for the mild shortness of breath over her baseline. The patient does appear to be a little bit too drowsy. She should consider reducing her evening sleep medication by half. It is possible she is knocking her oxygen off at times when she is sleeping and this would certainly lead to some hypoxia and shortness of breath. She needs to follow-up with her primary care doctor later this week. ER warnings were given.
--- NOTE | 2017-10-22 01:40 | RAD ---
EXAM DESCRIPTION: Chest,1 View CLINICAL HISTORY:72 years Female, shortness of breath Comparison: October 19, 2017 FINDINGS: * Small bilateral pleural effusions with bibasilar opacities representing atelectasis or pneumonia with mild improvement in the right lung base compared to prior. * Unchanged enlarged cardiac silhouette. * No other change. Electronically signed by: Doc Urbina MD 10/22/2017 1:39 AM CDT
[2017-10-22 03:55] VITALS: BP 128/85; O2SAT 96
== END 2017-10-22 04:03 | disposition home or self-care (01) ==
LOC: ER 00:41
DX: R06.02 Shortness of breath (principal); E11.22 Type 2 diabetes mellitus with diabetic chronic kidney disease; I12.0 Hypertensive chronic kidney disease with stage 5 chronic kidney disease or end stage renal disease; N18.6 End stage renal disease; J44.9 Chronic obstructive pulmonary disease, unspecified; F03.90 Unspecified dementia, unspecified severity, without behavioral disturbance, psychotic disturbance, mood disturbance, and anxiety; Z99.2 Dependence on renal dialysis; Z79.4 Long term (current) use of insulin; Z88.0 Allergy status to penicillin; Z79.82 Long term (current) use of aspirin; Z88.2 Allergy status to sulfonamides; Z99.81 Dependence on supplemental oxygen

== ENCOUNTER 2018-01-05 15:38 | Emergency (ER) | payer MEDICARE, OTHER ==
[2018-01-05 15:57] VITALS: BP 107/51
--- NOTE | 2018-01-05 16:29 | RAD ---
EXAM DESCRIPTION: Chest,1 View CLINICAL HISTORY:72 years Female, sob, myalgias Comparison: October 22, 2017 FINDINGS: Low lung volumes with bibasilar patchy opacities representing a combination of pleural effusions, pulmonary edema, atelectasis and/or pneumonia. Enlarged cardiac silhouette with mild central vascular congestion. Findings slightly worsened from prior. No pneumothorax. Electronically signed by: Doc Urbina MD 01/05/2018 4:27 PM CDT
[2018-01-05] MEDS ORDERED: IPRATROPIUM/ALBUTEROL 3 ML VIAL NEB ONE (16:52)
[2018-01-05] MEDS ORDERED: levoFLOXacin 500 MG TAB PO ONE (17:25)
--- NOTE | 2018-01-05 17:27 | ED.PDOC ---
History of Present Illness - General Chief Complaint: General Stated Complaint: feels bad, having chills Time Seen by Provider: 01/05/18 15:51 Source: patient Exam Limitations: no limitations - History of Present Illness Initial Comments: the patient is a 72-year-old female presenting to the emergency room secondary to feeling very poorly all over after having been off of her oxygen for an unknown period of time. It is likely according to her that it was at least 3 hours. As seen on multiple occasions in the past even without any acute pulmonary process the patient's oxygen levels dropped down into the 70s without her supplemental oxygen. The patient is feeling better after oxygen was restarted here. Apparently the patient's normal oxygen that tingling around the wheelchair wheel and she was unable to use it. She went to put on her portable oxygen but the regulator was apparently turned off. The patient is alert and oriented. She is cooperative. She does have mild bibasilar rales. These do clear up after the patient is back on her oxygen for a while. Timing/Duration: unsure Severity: moderate Improving Factors: nothing Worsening Factors: medication Associated Symptoms: denies symptoms Allergies/Adverse Reactions: Allergies Penicillins Allergy (Verified 10/19/17 22:02) Sulfa Antibiotics Allergy (Verified 10/19/17 22:02) Home Medications: Ambulatory Orders ALPRAZolam [Xanax] 0.25 mg PO BEDTIME PRN 10/02/17 Aspirin [Aspirin Adult Low Dose] 81 mg PO DAILY 10/02/17 Calcium Acetate (Phosphate Bin [Calcium Acetate] 3 tablet PO TIDFD 10/02/17 Cilostazol 50 mg PO BID 10/02/17 Cinacalcet HCl [Sensipar] 60 mg PO MOWEFR 10/02/17 Insulin Aspart [Novolog Flexpen] 0 unit SC ACHS MDD 50 units 10/02/17 Isosorbide Mononitrate [Isosorbide Mononitrate ER] 30 mg PO DAILY 10/02/17 Metoprolol Succinate [Metoprolol Succinate ER] 25 mg PO BID 10/02/17 Review of Systems - Review of Systems Constitutional: States: malaise, weakness EENTM: States: no symptoms reported Respiratory: States: short of breath Cardiology: States: no symptoms reported Gastrointestinal/Abdominal: States: no symptoms reported Genitourinary: States: no symptoms reported Musculoskeletal: States: other - generalized myalgias Skin: States: no symptoms reported Neurological: States: anxiety Endocrine: States: no symptoms reported All other Systems: No Change from Baseline Past Medical History (General) - Patient Medical History Hx Seizures: No Hx Stroke: Yes Hx Dementia: Yes Hx Asthma: No Hx of COPD: Yes Hx Cardiac Disorders: Yes Hx Congestive Heart Failure: No Hx Pacemaker: No Hx Hypertension: Yes Hx Thyroid Disease: No Hx Diabetes: Yes Hx Gastroesophageal Reflux: Yes Hx Renal Disease: Yes - ESRD Hx Cancer: No Hx of HIV: No Hx Hepatitis C: No Hx MRSA: No - Vaccination History Hx Tetanus, Diphtheria Vaccination: No Hx Influenza Vaccination: - unknown Hx Pneumococcal Vaccination: - unknown - Social History Hx Tobacco Use: No Hx Chewing Tobacco Use: No Hx Alcohol Use: No Hx Substance Use: No Hx Substance Use Treatment: No Hx Depression: No Hx Physical Abuse: No Hx Emotional Abuse: No Hx Suspected Abuse: No - Female History Patient is a Female of Child Bearing Age (10 -59 yrs old): No Patient : No - Triage Comment ED Triage Comment: Pt hard of hearing, unreliable sourse of information. Family Medical History - Family History Father Living Status: Hx Cardiac Disease: Yes Hx Family Diabetes: Yes Physical Exam - Physical Exam General Appearance: Alert, Anxious, No apparent distress Eye Exam: bilateral normal Ears, Nose, Throat: normal pharynx, other - hearing is chronically decreased bilaterally Neck: non-tender, supple Respiratory: chest non-tender, no respiratory distress, no accessory muscle use , rales - mild bibasilar rales initially but cleared significantly after oxygen is kept in place Cardiovascular/Chest: normal peripheral pulses, no edema, other - regular rate Peripheral Pulses: radial,right: 2+, radial,left: 2+ Gastrointestinal/Abdominal: non tender, soft Rectal Exam: deferred Back Exam: no CVA tenderness Extremity: normal range of motion, no calf tenderness, other - the patient has severe lower extremityperipheral vascular disease. She has long-standing ischemic changes to her toes. She has long-standing petechia to the base of her feet. There is no significant drainage and no increased warmth or increased pain. No significant edema Neurologic: informatics physician II-XII nml as tested, alert, oriented x 3, other - the patient is anxious. She does have significant lower extremity neuropathy. Skin Exam: pallor Comments: Vital Signs - 24 hr 01/05/18 01/05/18 01/05/18 15:50 15:59 17:09 Temperature 97.6 F Pulse Rate 88 Pulse Rate [ 88 Right Brachial] Respiratory 20 20 20 Rate Blood Pressure 107/51 [Right Arm] O2 Sat by Pulse 97 97 Oximetry 01/05/18 17:19 Temperature Pulse Rate 88 Pulse Rate [ Right Brachial] Respiratory 20 Rate Blood Pressure [Right Arm] O2 Sat by Pulse Oximetry Progress - Progress Progress: 01/05/18 17:30 the patient is a 72-year-old female presenting to the emergency room after an extended period of time of getting no supplemental oxygen. The patient appropriately is feeling poorly upon arrival. She oxygenates well with oxygen supplementation here however. Chest x-ray shows chronic changes and significant atelectasis. There is the possibility of lower lobe infiltrates so the patient will be covered with Levaquin for 3 days. he does need to do deep breathing and make herself cough. Clinically she does not appear to have any significant infection and her white blood cell count is within normal limits. She does not require any additional oxygen supplementation over her baseline supplementation. She does need to keep follow-up with dialysis tomorrow. No evidence of any other acute pathology has been found. if symptoms change then she may require a repeat or different evaluation. - Results/Orders Results/Orders: chest x-ray shows mild pleural effusions and basilar infiltrates versus atelectasis Laboratory Results - last 24 hr 01/05/18 01/05/18 01/05/18 16:23 16:23 16:23 WBC 7.8 RBC 3.87 L Hgb 12.0 Hct 38.2 MCV 98.7 MCH 31.0 MCHC 31.4 L RDW 18.9 H Plt Count 129 L MPV 11.2 H Absolute Neuts (auto) 6.90 H Absolute Lymphs (auto) 0.30 L Absolute Monos (auto) 0.50 Absolute Eos (auto) 0.00 Absolute Basos (auto) 0.10 Neutrophils % 88.5 H Lymphocytes % 3.3 L Monocytes % 6.9 Eosinophils % 0.6 L Basophils % 0.7 Sodium 140 Potassium 3.4 L Chloride 95 L Carbon Dioxide 30 Anion Gap 18.4 H BUN 24 H Creatinine 3.87 H BUN/Creatinine Ratio 6.2 L Random Glucose 148 H Serum Osmolality 286.2 Lactic Acid 2.3 H Calcium 10.6 H Total Bilirubin 1.3 H AST 22 ALT 10 Alkaline Phosphatase 147 H Creatine Kinase 23 L CK-MB (CK-2) 1.4 CK-MB (CK-2) % Not Reportable Troponin I 0.03 Serum Total Protein 7.9 Albumin 3.3 Globulin 4.6 H Albumin/Globulin Ratio 0.7 L Departure - Departure Clinical Impression: Hypoxia, Generally unwell Disposition: Discharge to Home or Self Care Condition: Fair Departure Forms: ED Discharge - Pt. Copy, Patient Portal Self Enrollment Diet: diabetic diet Activity: increase activity as tolerated Referrals: SLIM ROCHA [Primary Care Provider] - 1-2 Weeks Home Medications: Ambulatory Orders ALPRAZolam [Xanax] 0.25 mg PO BEDTIME PRN 10/02/17 Aspirin [Aspirin Adult Low Dose] 81 mg PO DAILY 10/02/17 Calcium Acetate (Phosphate Bin [Calcium Acetate] 3 tablet PO TIDFD 10/02/17 Cilostazol 50 mg PO BID 10/02/17 Cinacalcet HCl [Sensipar] 60 mg PO MOWEFR 10/02/17 Insulin Aspart [Novolog Flexpen] 0 unit SC ACHS MDD 50 units 10/02/17 Isosorbide Mononitrate [Isosorbide Mononitrate ER] 30 mg PO DAILY 10/02/17 Metoprolol Succinate [Metoprolol Succinate ER] 25 mg PO BID 10/02/17 Additional Instructions: the patient is a 72-year-old female presenting to the emergency room after an extended period of time of getting no supplemental oxygen. The patient appropriately is feeling poorly upon arrival. She oxygenates well with oxygen supplementation here however. Chest x-ray shows chronic changes and significant atelectasis. There is the possibility of lower lobe infiltrates so the patient will be covered with Levaquin for 3 days. he does need to do deep breathing and make herself cough. Clinically she does not appear to have any significant infection and her white blood cell count is within normal limits. She does not require any additional oxygen supplementation over her baseline supplementation. She does need to keep follow-up with dialysis tomorrow. No evidence of any other acute pathology has been found. if symptoms change then she may require a repeat or different evaluation.
[2018-01-05 17:55] VITALS: TEMP 98; O2SAT 91
== END 2018-01-05 17:56 | disposition home or self-care (01) ==
LOC: ER 15:38
DX: R09.02 Hypoxemia (principal); R53.1 Weakness; R53.81 Other malaise; J44.9 Chronic obstructive pulmonary disease, unspecified; F03.90 Unspecified dementia, unspecified severity, without behavioral disturbance, psychotic disturbance, mood disturbance, and anxiety; E11.22 Type 2 diabetes mellitus with diabetic chronic kidney disease; I12.0 Hypertensive chronic kidney disease with stage 5 chronic kidney disease or end stage renal disease; N18.6 End stage renal disease; K21.9 Gastro-esophageal reflux disease without esophagitis; Z99.81 Dependence on supplemental oxygen; Z79.4 Long term (current) use of insulin; Z79.82 Long term (current) use of aspirin; Z79.899 Other long term (current) drug therapy; Z88.0 Allergy status to penicillin; Z88.2 Allergy status to sulfonamides
CPT/HCPCS: 36415; 71045; 80053; 82550; 82553; 83605; 84484; 85025; 94640; J7620